=== PATIENT | female | born 1935 | race Caucasian/White ===

== ENCOUNTER 2017-09-26 12:59 | Observation (INO) | payer MEDICARE, OTHER ==
[2017-09-26] MEDS ORDERED: Iopamidol 370 76% 100 ML VIAL ONE (13:40)
[2017-09-26 13:43] LABS: #Lymphocytes 0.5 thou/uL (1.20-3.40); #Monocytes 0.5 thou/uL (0.11-0.59); %Basophils 0.4 % (0.0-1.0); %Eosinophils 0.2 % (0.0-10.0); %Lymphocytes 5.1 % (21.0-51.0); %Monocytes 4.9 % (0.0-10.0); %Neutrophils 89.4 % (42.0-75.0); Hemoglobin 11.4 g/dL (12.0-16.0); Mean Corpuscular HGB CONC 33.8 g/dL (32.0-36.0); Mean Corpuscular Volume 82.9 fl (81.0-99.0); Mean Platelet Volume 7.1 fL (7.4-10.4); Platelet Count 240 thou/uL (130-400); RBC Distribution Width 11.6 % (11.5-14.5); Red Blood Cell (RBC) Count 4.06 mill/uL (4.20-5.40)
[2017-09-26] MEDS ORDERED: Morphine 5 MG/ML SYRINGE ONE (13:52)
[2017-09-26] MEDS ORDERED: Ondansetron HCl/PF 4 MG/2 ML Vial ONE (13:52)
[2017-09-26 14:01] LABS: ALT (SGPT) 13 U/L (8-55); AST (SGOT) 15 U/L (5-34); Albumin 3.6 g/dL (3.4-4.8); Alkaline Phosphatase 99 U/L (40-150); Anion Gap 14 mmol/L (10-20); BUN (Urea Nitrogen) 16 mg/dL (9.8-20.1); Bilirubin, Total 0.5 mg/dL (0.2-1.2); CK (CPK) 75 U/L (29-168); Calc. Creatinine Clearance 0 mL/min (70-130); Calcium 8.9 mg/dL (7.8-10.44); Carbon Dioxide 23 mmol/L (23-31); Chloride 106 mmol/L (98-107); Estimated GFR-MDRD 69; Globulin 3.3 g/dL (2.4-3.5); Glucose 106 mg/dL (83-110); Lipase 40 U/L (8-78); Potassium 3.7 mmol/L (3.5-5.1); Protein, Total 6.9 g/dL (6.0-8.3); Sodium 139 mmol/L (136-145)
[2017-09-26 14:02] LABS: CKMB 1.8 ng/mL (0-6.6); Troponin I Less than 0.010 ng/mL (< 0.028)
--- NOTE | 2017-09-26 14:26 | CT ---
BRAIN CT WITHOUT IV CONTRAST: HISTORY: An 82-year-old female with altered mental status following chest pain this morning. FINDINGS: Bilateral atrophy and chronic white matter ischemic changes. Subcutaneous partially calcified scalp mass noted overlying the right occipital parietal region. No focal mass or midline shift. No intra- or extraaxial hemorrhage. IMPRESSION: No mass or bleed. Atrophy and chronic white matter ischemic change. POS: OFF
--- NOTE | 2017-09-26 14:28 | RAD ---
CHEST 1 VIEW PORTABLE: HISTORY: An 82-year-old female with a history of chest pain this morning. FINDINGS: Scattered linear and interstitial increased markings, evidence for chronic change. Biapical pleural thickening. Heart size is normal. Atherosclerosis of the aorta. IMPRESSION: Minimal increased linear and interstitial markings most consistent with some chronic change. Biapica l pleural thickening. Atherosclerosis of the aorta. No evidence of pneumonia, edema, or other acute process. POS: OFF
--- NOTE | 2017-09-26 14:41 | CT ---
CT ABDOMEN AND PELVIS WITH CONTRAST: HISTORY: Abdominal pain. Vomiting. COMPARISON: None. FINDINGS: Mild atelectatic changes in the lung bases. No pericardial effusion. Hepatic cyst is present in segment 4A. Prior cholecystectomy. No dilated air fluid loops of large o r small bowel. There is poor renal cortical enhancement of the left kidney relative to the right. The left renal co rtex is thin relative to the right. Aortoiliac contour is nonaneurysmal. No free intraperitoneal gas or fluid. There is mild dilatation of the pancreatic duct. The skeleton is unremarkable. IMPRESSION: 1. No acute informatory process of the abdomen or pelvis. 2. Mild diverticular disease of the sigmoid colon without active inflammation. 3. Asymmetric decreased enhancement of the left kidney relative to the right with some cortical thin lou may be chronic in nature, likely chronic vasculature. Recommend correlation with urinalysis to evaluate for urinary tract infection/pyelonephritis. POS: JEAN
[2017-09-26 14:45] LABS: Bilirubin Negative (Negative); Blood, Urine Negative (Negative); Clarity Clear (Clear); Glucose, Urine (Dipstick) Negative (Negative); Leukocyte Negative (Negative); Nitrite Negative (Negative); Protein, Urine (Dipstick) Negative (Neg-Trace); Urobilinogen 0.2 mg/dL (0.2-1.0)
[2017-09-26 16:53] LABS: Troponin I Less than 0.010 ng/mL (< 0.028)
[2017-09-26] MEDS ORDERED: Acetaminophen 325 MG TAB PO PRN (17:55)
[2017-09-26] MEDS ORDERED: Ondansetron HCl/PF 4 MG/2 ML Vial IVP PRN (17:55)
[2017-09-26] MEDS ORDERED: Sodium Chloride 0.9% 1,000 ML IV SCH (17:55)
[2017-09-26] MEDS ORDERED: Ondansetron ODT 4 MG TAB SL PRN (17:55)
[2017-09-26] MEDS ORDERED: Nitroglycerin 2% Ointment 1 INCH/1 GM Packet TOP SCH (18:00)
[2017-09-26 18:16] VITALS: BMI 21.9
[2017-09-26] MEDS ORDERED: traMADol HCl 50 MG TAB PO PRN (19:44)
[2017-09-26 19:55] LABS: Troponin I 0.012 ng/mL (< 0.028)
[2017-09-26] MEDS: Carvedilol 3.125 MG TAB PO SCH (21:19)
[2017-09-26] MEDS: Famotidine 20 MG TAB PO SCH (21:19)
--- NOTE | 2017-09-26 21:29 | HP ---
PRIMARY CARE PHYSICIAN: Savannah Do M.D. CHIEF COMPLAINT: Chest pain. HISTORY OF PRESENT ILLNESS: This is an 82-year-old female with minimal past medical history, who initially fell approximately 2 weeks ago in her bathtub; she describes the event as an inability to get out of the bathtub, so she leaned heavily on her anterior chest wall. Since then, the patient has been demonstrating significant bruising, complaints of intermittent discomfort in the area across her front chest. The patient went to go see her PCP yesterday; however, and denied any significant chest pain rating her pain in that area at a 2/10. Earlier today, the patient had acute diarrhea x1 and complained of feeling nauseated and self-induced emesis x1 by sticking her finger down her throat. After that episode, the patient complained of chest discomfort. The patient was therefore taken to the Emergency Department [facility] because of the complaint of chest pain and concern for coronary artery disease. At the time of my evaluation, the patient is accompanied by her niece, who is her closest living relative and the niece helps provide part of the history as above. REVIEW OF SYSTEMS: As per HPI. CONSTITUTIONAL: No significant weight loss. The patient has gained approximately 4 pounds in the last 2 weeks since moving to a home close to her niece. Patient's niece states that she has been "fixing plates" for the patient and the patient tends to eat everything that is placed in front of her. Patient was previously living by herself in her own home far away from any family and the niece is not sure how well the patient was eating beforehand. No recent fevers or chills. HEENT: No recent complaints of dizziness or lightheadedness. There is a question of whether or not the patient has had some vision loss and it is unclear, but the duration of vision loss as the patient has been "running into objects" but this has been noticed for at least for the last 2 weeks if not longer is unknown duration. CARDIOVASCULAR: Chest pain as described above other than the episode above. No recent issues with dyspnea with exertion or chest pressure or shortness of breath. RESPIRATORY: As described above as well. No recent cough, no recent congestion or complaints of sinus pain or ear pain. GASTROINTESTINAL: As described above. GENITOURINARY: No recent complaints of dysuria, changes in urinary frequency, quantity, or quality. MUSCULOSKELETAL: No new myalgias or arthralgias, other than the pain from leaning across the tub and the anterior chest wall. The remainder review of systems otherwise negative. PAST MEDICAL HISTORY: As per above includes, 1. Overactive bladder. 2. The patient's niece wonders if the patient may have some early cognitive deficit, but the patient has never been diagnosed with this. ALLERGIES: No known prior surgeries that the patient recalls that her niece is aware of. HOME MEDICATIONS: Please see the EMR, it appears that the patient takes minimal home medications including over the counter selenium supplements. No recent new supplements, herbals, vitamins or medication changes at the patient' s niece or the patient is aware of. FAMILY HISTORY: No known family history of cardiovascular disease; however, the patient does have a family member she has issues with glaucoma, both acute angle included. SOCIAL HISTORY: The patient previously was living alone now is still living independently with her pet dog, but in close geographic proximity to her niece, who is with her at bedside. Patient indicates her niece would be her medical decision maker if she is unable to make her own medical decisions and does not have a current DNR in place and has not discuss this before, so she is currently presumed to be a FULL CODE as she does not want to make that decision at this point in time. PHYSICAL EXAMINATION: VITAL SIGNS: Blood pressure 126/81, respirations 18, satting 93% on room air, pulse of 71, and temperature of 99.8. GENERAL: The patient is awake, alert, conversant, oriented to self and to place that this is a hospital. HEENT: Normocephalic, atraumatic. Slightly dry mucous membranes. Equal ocular motions are intact. Marginal dentition. No posterior oropharyngeal erythema or exudate. RESPIRATORY: Reasonable air movement. No conversational dyspnea. No wheezes, rales, or rhonchi. Clear to auscultation bilaterally. CARDIOVASCULAR: S1 and S2. There are no significant murmurs, rubs, or gallops. Soft heart tones. Pulses 2+ bilateral upper extremities, no pitting pedal edema. ABDOMEN: Positive bowel sounds, soft, nontender to palpation. NEUROLOGIC: Moving all 4 extremities independently, able to self-reposition in the bed and feed herself without difficulty or assistance. LABORATORY DATA AND IMAGING: WBC 10.0, hemoglobin 11.4, hematocrit 33.6, platelets 240. Sodium 139, potassium 3.7, chloride 106, bicarbonate 23, BUN 16 , creatinine 0.79, glucose 106. Lactic acid 0.8, calcium 8.9, total bilirubin 0.5, AST 15, ALT 13, alkaline phosphatase 99. Creatinine kinase 75, troponin less than 0.01 x2. Total protein 6.9, albumin 3.6, TSH 1.9, lipase of 40. UA is essentially planned 09/26/2017 chest x-ray result. IMPRESSION: Minimal increased linear and interstitial markings most consistent with some chronic change. Biapical pleural thickening. Atherosclerosis of the aorta. No evidence of pneumonia, edema, or other acute process. On 07/29/2017 , brain CT: Impression" no mass or bleed. Atrophy and chronic white matter ischemic change." On 07/29/2017, abdomen and pelvis CT: Impression, "No acute inflammatory process of the abdomen or pelvis. Mild diverticular disease of the sigmoid colon without active inflammation. Asymmetric decreased enhancement of the left kidney relative to the right with some cortical thinning may be chronic in nature, likely chronic vasculature. Recommend correlation with urinalysis to evaluate for urinary tract infection/ pyelonephritis." ASSESSMENT AND PLAN: An 82-year-old female with a chief complaint of chest pain. 1. Chest pain. Given the patient's history, suspect a component of musculoskeletal origin of chest pain, particularly with bruising noted around her chest wall and breasts. The discomfort could also have a pleuritic component exacerbated by a degree of splinting after her bruising from the tub incident/ fall. We will initiate incentive spirometry, conservative management of pain including Lidoderm patch and tramadol if needed along with non- steroidal anti-inflammatory drugs. Patient will undergo evaluation for a cardiac etiology; however, that appears to be slightly less likely given more apparent cause of musculoskeletal pain. 2. Initially prior to presentation in sign out is given that there is a concern for gastroenteritis causing a component of dehydration. Patient is currently tolerating her dinner including mashed potatoes and a pork chop without any difficulty. I suspect that what has occurred earlier is likely resolved. We will continue to monitor overnight. 3. Question of emphysema. The patient's niece states that the patient used to be a heavy smoker at one point in time was told that she has emphysema. She has never been evaluated for this on an outpatient basis. The patient is currently not hypoxic, appears to be maintaining her O2 saturations. Do not suspect a chronic obstructive pulmonary disease exacerbation at this point in time. Of note, the patient's chest x-ray does appear to have some degree of hyperinflation without flattening of the diaphragms. We would recommend that the patient have an outpatient pulmonary function test. 4. Diet: As tolerated. 5. Activity: As tolerated. Incentive spirometry as above and we will consult physical therapy. 6. Deep vein thrombosis prophylaxis, enoxaparin. Thank you for asking me to care for patient, admit the patient to observation status. LATIAD
[2017-09-27] MEDS: Prevnar 13-Val Conj/PF 0.5 ML SYRINGE IM ONE ×2 (02:08→13:49)
[2017-09-27 05:52] LABS: Cardiac Risk 2.6 (Less than 4.5)
[2017-09-27] MEDS ORDERED: Aspirin 325 MG TAB PO SCH (09:00)
[2017-09-27] MEDS ORDERED: Enoxaparin Sodium 30 MG/0.3 ML SYRINGE SC SCH (09:00)
[2017-09-27] MEDS ORDERED: Lidocaine 5% Patch TD SCH (09:00)
[2017-09-27] MEDS: Famotidine 20 MG TAB PO SCH (09:35)
[2017-09-27] MEDS: Carvedilol 3.125 MG TAB PO SCH (09:35)
[2017-09-27 12:16] VITALS: TEMP 98.4
[2017-09-27 12:29] VITALS: BP 110/54
[2017-09-27] MEDS ORDERED: Lidocaine Patch Removal 1 EACH TOP SCH (21:00)
== END 2017-09-27 14:22 | disposition home or self-care (01) ==
LOC: SCSER 12:59 → 2SW 15:57
PROVIDERS: ADMIT Internal Medicine; ATTEND Internal Medicine
DX: R07.89 Other chest pain (principal); K52.9 Noninfective gastroenteritis and colitis, unspecified; E86.0 Dehydration
CPT/HCPCS: 70450; 71045; 74177; 80061; 81003; 82550; 82553; 83605; 83690; 84484 ×2; 87040; 87086; 90670; 93005; 93306; 94760; 96361 ×2; 96372; 96374; 96375; 97116; 97139; 99285; G0009; G0378; G8978; G8979; 36415; 80053; 84443; 85025; 90471; J2270; A4353; J1650; J2405

== ENCOUNTER 2018-11-05 10:36 | Inpatient (IN) | payer MEDICARE ==
[2018-11-05] MEDS ORDERED: Ondansetron ODT 8 MG TAB ONE (11:13)
[2018-11-05] MEDS ORDERED: Morphine 10 MG/ML VIAL ONE (11:13)
--- NOTE | 2018-11-05 11:43 | RAD ---
XR Elbow Rt 4 View STANDARD HISTORY: Fall with elbow pain. COMPARISON: None. FINDINGS: The bones are demineralized. There is no evidence of fracture, dislocation or joint effusio n. Mild arthritic changes are present. IMPRESSION: No acute injury.
--- NOTE | 2018-11-05 11:44 | RAD ---
XR Shoulder Rt 3 View STANDARD HISTORY: Fall with shoulder pain. COMPARISON: None. FINDINGS: Bones are demineralized. There are no signs of fracture or dislocation. IMPRESSION: No evidence of fracture.
--- NOTE | 2018-11-05 11:45 | RAD ---
Exam: AP pelvis one view: HISTORY: Unwitnessed fall this morning, right hip pain FINDINGS: Left hip nail in place. Subcapital right femoral neck fracture with some foreshortening. Bony demineralization. No evidence for acute pelvis fracture. IMPRESSION: Displaced somewhat foreshortened right subcapital femoral neck fracture. Left hip nail stabilizes the left hip. Bony demineralization without acute pelvic fracture.
--- NOTE | 2018-11-05 11:48 | RAD ---
RIGHT HIP 2 VIEWS: Date: 11/05/18 HISTORY: Fall. Right hip injury. FINDINGS: There is valgus angulation at a subcapital fracture. Femoral head contour is maintained. Mild osteoph ytosis. Osseous structures are demineralized. IMPRESSION: Subcapital right hip fracture. POS: CET
[2018-11-05 12:03] LABS: #Eosinphils 0.1 thou/uL (0.0-0.7); #Lymphocytes 1.3 thou/uL (1.20-3.40); %Basophils 0.2 % (0.0-1.0); %Eosinophils 1.1 % (0.0-10.0); %Lymphocytes 11.2 % (21.0-51.0); %Monocytes 8.7 % (0.0-10.0); %Neutrophils 78.8 % (42.0-75.0); Hemoglobin 10.7 g/dL (12.0-16.0); Mean Corpuscular Hemoglobin 30.4 pg (27.0-31.0); Mean Corpuscular Volume 89.4 fL (78.0-98.0); Mean Platelet Volume 6.6 fL (7.4-10.4); Platelet Count 253 thou/uL (130-400); RBC Distribution Width 11.5 % (11.5-14.5); Red Blood Cell (RBC) Count 3.52 mill/uL (4.20-5.40); White Blood Cell (WBC) Count 11.4 thou/uL (4.8-10.8)
--- NOTE | 2018-11-05 12:13 | CT ---
CT HEAD NONCONTRAST DATE: 11/05/18 HISTORY: Fall. Head injury. COMPARISON: 09/26/17. FINDINGS: There is no evidence of acute intracranial hemorrhage or infarct. The ventricles appear normal in siz e, shape, and position. There is no mass effect or shift of midline structures. Diffuse cortical atro phy and chronic ischemic small vessel disease. Visualized paranasal sinuses remain well aerated. Part ially calcified right parietal scalp lesions appear stable. IMPRESSION: No acute intracranial abnormalities are demonstrated. POS: CET
[2018-11-05 12:31] LABS: ALT (SGPT) 17 U/L (8-55); AST (SGOT) 28 U/L (5-34); Alkaline Phosphatase 92 U/L (40-150); Anion Gap 14 mmol/L (10-20); BUN (Urea Nitrogen) 19 mg/dL (9.8-20.1); Bilirubin, Total 0.5 mg/dL (0.2-1.2); Calc. Creatinine Clearance 0 mL/min (70-130); Calcium 9.6 mg/dL (7.8-10.44); Carbon Dioxide 22 mmol/L (23-31); Chloride 102 mmol/L (98-107); Estimated GFR-MDRD 61; Globulin 2.9 g/dL (2.4-3.5); Glucose 111 mg/dL (83-110); Magnesium 1.7 mg/dL (1.6-2.6); Protein, Total 6.9 g/dL (6.0-8.3); Sodium 134 mmol/L (136-145)
--- NOTE | 2018-11-05 12:32 | RAD ---
CHEST 1 VIEW: Date: 11/05/18 HISTORY: Preop. COMPARISON: 09/26/17. FINDINGS: Cardiac silhouette is magnified by projection. Pulmonary vasculature unremarkable. Lungs remain hyper inflated. Mediastinum midline. No confluent air space consolidation or evidence of pneumothorax. IMPRESSION: No active cardiopulmonary abnormalities are demonstrated. POS: CET
[2018-11-05 12:43] LABS: Phosphorus 3.1 mg/dL (2.3-4.7)
[2018-11-05 12:49] LABS: Troponin I Less than 0.010 ng/mL (< 0.028)
[2018-11-05 13:16] LABS: Bilirubin Negative (Negative); Blood, Urine Negative (Negative); Clarity CLOUDY (Clear); Glucose, Urine (Dipstick) Negative (Negative); Leukocyte Negative (Negative); Nitrite Negative (Negative); Protein, Urine (Dipstick) Negative (Neg-Trace); Specific Gravity, Urine 1.015 (1.002-1.036); Urobilinogen 0.2 mg/dL (0.2-1.0); pH, Urine 7.5 (5.0-9.0)
[2018-11-05] MEDS ORDERED: Promethazine HCl 25 MG/ML VIAL IM PRN (13:30)
[2018-11-05] MEDS ORDERED: hydrALAZINE 20 MG/ML VIAL SLOW IVP PRN (13:30)
[2018-11-05] MEDS ORDERED: Dextrose 50% Abboject 50 ML SYRINGE SLOW IVP PRN (13:30)
[2018-11-05] MEDS ORDERED: Dextrose 5% in Water 1,000 ML IV PRN (13:30)
[2018-11-05] MEDS ORDERED: Ondansetron PF 4 MG/2 ML Vial IVP PRN (13:30)
[2018-11-05] MEDS ORDERED: traMADol HCl 50 MG TAB PO PRN (13:33)
[2018-11-05] MEDS ORDERED: Magnesium 2 GM/50 ML 2 GM in Premix Bag 1 BAG IVPB SCH (13:45)
[2018-11-05] MEDS: Ibuprofen 600 MG TAB PO SCH ×2 (15:14→21:36)
[2018-11-05] MEDS: Acetaminophen 1,000 MG in Premix Bag 1 BAG IVPB SCH ×2 (15:14→21:35)
[2018-11-05] MEDS: Sodium Chloride 0.9% 1,000 ML IV SCH (15:14)
--- NOTE | 2018-11-05 15:35 | HP ---
TRAUMA SURGEON: Bakari Parsons MD CONSULTING PHYSICIAN: Dr. Hollins. HISTORY OF PRESENT ILLNESS: The patient is an 83-year-old female presented to the emergency department after unwitnessed fall at a [facility], where she [facility]. The patient arrived complaining of right-sided hip pain. The fall happened around 3 a.m. The patient was able to crawl out through the door and called for help. She did not ambulate after that time. Evaluation by the Emergency Department discovered a right-sided hip fracture. Orthopedic Surgery was consulted, who recommended surgical fixation tomorrow. At the time of my evaluation, the patient reported she had pain in her right hip. She has a history of Alzheimer's dementia and has waxing and waning mentation. The patient's nephew and his at bedside, who are her POA and closest relative reports that this is her baseline. She did recognize them. Family also reports she is intermittently agitated and she will regularly try to get up out of bed without assistance while in the hospital. She usually ambulates without difficulty in her prison and is able to get up and go to the bathroom at night. The patient's mechanical design technician who stays with her at the prison report the patient did not have a loss of consciousness. She is not on any anticoagulation. REVIEW OF SYSTEMS: All additional 10-point review of systems is negative except as indicated above. PAST MEDICAL HISTORY: Alzheimer's dementia, chronic anemia, depression, anxiety , bipolar disorder, GERD, and schizoaffective disorder. PAST SURGICAL HISTORY: Left hip repair and hysterectomy. SOCIAL HISTORY: Family reports a previous history of tobacco use, none recently. Denies alcohol and drug abuse as well. MEDICATIONS: 1. Alprazolam. 2. Aricept. 3. Aspirin. 4. Bisacodyl. 5. Celexa. 6. D3. 7. Depakote. 8. Docusate sodium. 9. Imodium ED. 10. Magnesium oxide. 11. Meclizine. 12. Melatonin. 13. Omeprazole. 14. Quetiapine. 15. Remeron. 16. Ventolin HFA. 17. Vitamin C. ALLERGIES: NO KNOWN DRUG ALLERGIES. PHYSICAL EXAMINATION: Primary survey airway intact. Adequate breath sounds bilaterally. 2+ pulses in the bilateral radials, femorals, and DPs. GCS is 14-1 for confusion. This is her baseline. Gross motor and sensation is intact. No lacerations, bruising, or external bleeding. SECONDARY SURVEY: HEAD: Normocephalic and atraumatic. No gross palpable skull deformities. EYES: Pupils 3 to 2, equal, round, reactive bilaterally. ENT: No hemotympanum. No epistaxis. No septal hematoma. Midface stable to manipulation. No blood in the oropharynx. Dentition is intact. No anterior neck injury, crepitus or tenderness. C-SPINE: No tenderness or deformities. No step-offs. C-collar not in place. CHEST: Nontender. No crepitus. No abrasions or ecchymosis noted. Equal chest movement. ABDOMEN: Soft, nontender, nondistended. PELVIS: Stable to palpation. Right-sided hip and thigh tenderness. No abrasions or ecchymosis. RECTAL: Deferred. GENITOURINARY: Deferred. EXTREMITIES: 2+ pulses in all extremities. No gross deformity noted. Gross motor and sensation is intact. BACK/SPINE: No step-offs or deformities or tenderness to palpation of the thoracic or lumbar spine. No abrasions or ecchymosis noted. NEUROLOGIC: 5/5 strength in the bilateral rubber block layer, plantar flexion, and dorsiflexion. Gross normal sensation x4 extremities. GCS is 14-1 for verbal, which is her baseline. LABORATORY FINDINGS: White count 11.4, hemoglobin 10.7, hematocrit 31.4, platelets 253. Sodium 134, potassium 4.0, chloride 102, carbon dioxide 22, BUN 19, creatinine 0.88, glucose 111, phos 3.1, magnesium 1.7, total bilirubin 0.5, AST 28, ALT 17. Troponin less than 0.010. UA is negative. DIAGNOSTIC FINDINGS: EKG demonstrated normal sinus rhythm with no ST changes or ectopy. CT of the brain demonstrated no acute intracranial abnormalities are demonstrated. X-ray of the right elbow demonstrated no acute injury. X-ray of the right hip demonstrated a subcapital right hip fracture. X-ray of the pelvis demonstrates displaced, somewhat foreshortened right subcapital femoral neck fracture. Left hip nail visualized in the left hip. Bony demineralization without acute pelvic fracture. X-ray of the right shoulder demonstrates no evidence of fracture. Chest x-ray demonstrates no active cardiopulmonary abnormalities are demonstrated. ASSESSMENT: 1. Status post unwitnessed fall at prison. 2. Right hip fracture. 3. Hypomagnesemia and hyponatremia. PLAN: The patient will be admitted to the Trauma Floor Service. She will receive a regular diet and be n.p.o. after midnight for OR with the Orthopedic Surgery team. Dr. Hollins to take the patient to the OR tomorrow. We will restart all home medications as clinically indicated. The patient is to be seen by Physical and Occupational Therapy tomorrow. The patient's family reported that the prison, in which she resides, has rehab and penitentiary capabilities and they would prefer that she go back to that facility as she is familiar with the staff and therapist. They said that these familiar people can greatly decrease the amount of agitation and combativeness that the patient has, as she feels more safe with them. The patient was discussed with Dr. Parsons before this dictation. Job ID: [id number] MTDD
[2018-11-05 15:41] VITALS: BMI 18.3
[2018-11-05] MEDS: traMADol HCl 50 MG TAB PO SCH (17:14)
[2018-11-05] MEDS ORDERED: Famotidine 20 MG TAB PO SCH (21:00)
[2018-11-05] MEDS: Divalproex Sodium 125 mg Sprinkle Capsule PO SCH (21:35)
[2018-11-05] MEDS: Senokot S 8.6-50 MG TAB PO SCH (21:36)
[2018-11-05] MEDS: Meclizine HCl 25 MG TAB PO SCH (21:36)
[2018-11-05] MEDS: Donepezil HCl 5 MG TAB PO SCH (21:36)
[2018-11-06] MEDS: traMADol HCl 50 MG TAB PO SCH ×4 (01:07→20:01)
[2018-11-06] MEDS: Acetaminophen 1,000 MG in Premix Bag 1 BAG IVPB SCH ×2 (03:45→09:02)
[2018-11-06 05:27] LABS: #Eosinphils 0.3 thou/uL (0.0-0.7); #Lymphocytes 0.6 thou/uL (1.20-3.40); #Monocytes 0.6 thou/uL (0.11-0.59); #Neutrophils 5.7 thou/uL (1.40-6.50); %Basophils 0.4 % (0.0-1.0); %Eosinophils 4.4 % (0.0-10.0); %Lymphocytes 7.9 % (21.0-51.0); %Monocytes 8.5 % (0.0-10.0); %Neutrophils 78.9 % (42.0-75.0); Hemoglobin 9.4 g/dL (12.0-16.0); Mean Corpuscular HGB CONC 33.4 g/dL (32.0-36.0); Mean Corpuscular Hemoglobin 30.2 pg (27.0-31.0); Mean Corpuscular Volume 90.5 fL (78.0-98.0); Mean Platelet Volume 6.7 fL (7.4-10.4); Platelet Count 182 thou/uL (130-400); RBC Distribution Width 11.6 % (11.5-14.5); Red Blood Cell (RBC) Count 3.12 mill/uL (4.20-5.40); White Blood Cell (WBC) Count 7.2 thou/uL (4.8-10.8)
[2018-11-06] MEDS: Sodium Chloride 0.9% 1,000 ML IV SCH ×2 (05:42→21:02)
[2018-11-06] MEDS: Ibuprofen 600 MG TAB PO SCH ×4 (05:43→23:27)
[2018-11-06 08:16] LABS: Chloride 102 mmol/L (98-107); Magnesium 2.3 mg/dL (1.6-2.6); Sodium 132 mmol/L (136-145)
[2018-11-06 08:17] LABS: Calcium 8.5 mg/dL (7.8-10.44); Glucose 94 mg/dL (83-110)
[2018-11-06 08:19] LABS: Anion Gap 12 mmol/L (10-20); Carbon Dioxide 22 mmol/L (23-31)
[2018-11-06 08:21] LABS: Calc. Creatinine Clearance 41 mL/min (70-130); Estimated GFR-MDRD 59
[2018-11-06 08:22] LABS: BUN (Urea Nitrogen) 19 mg/dL (9.8-20.1)
[2018-11-06 08:27] LABS: Phosphorus 4.2 mg/dL (2.3-4.7)
[2018-11-06] MEDS: Citalopram 20 MG TAB PO SCH (09:07)
[2018-11-06] MEDS: ALPRAZolam 0.25 MG TAB PO SCH (09:08)
[2018-11-06] MEDS: Mirtazapine 15 MG TAB PO SCH (10:38)
[2018-11-06] MEDS: Divalproex Sodium 125 mg Sprinkle Capsule PO SCH ×3 (10:38→23:27)
[2018-11-06] MEDS: Meclizine HCl 25 MG TAB PO SCH ×3 (10:38→23:27)
[2018-11-06] MEDS: Magnesium Oxide 400 MG TAB PO SCH (10:38)
[2018-11-06] MEDS: Polyethylene Glycol 3350 17 GM Packet PO SCH (10:39)
[2018-11-06] MEDS: Senokot S 8.6-50 MG TAB PO SCH ×3 (10:39→23:27)
--- NOTE | 2018-11-06 11:33 | CON ---
DATE OF CONSULTATION: 11/05/2018 This is Marcel Alatorre PA-C dictating a report for Tomasz Hollins MD. REASON FOR CONSULTATION: Right femoral neck fracture. BRIEF CLINICAL HISTORY: Haritha is an 83-year-old white female, who is a resident at a nursing facility in [place]. Apparently, the patient had an unwitnessed fall yesterday evening and she was brought to [facility] with plain radiographs, which demonstrated a valgus impacted right subcapital femoral neck fracture. She has been admitted by the Trauma service and we were consulted for definitive orthopedic management of this problem. The patient ambulates on her own. She has a sitter and is taken care of by her family in addition to the nursing facility. Her oldest nephew has been taking care of her and looking after her. PHYSICAL EXAMINATION: GENERAL: An elderly, frail-appearing woman, but well-nourished. She is lying supine in the hospital bed. EXTREMITIES: The right lower extremity appears normal. There is no shortening or external rotation. She is neurovascularly intact in the extremity, but palpation demonstrates discomfort. The hips are not examined due to known underlying fracture. IMAGING STUDIES: AP pelvis demonstrates a valgus impacted right subcapital femoral neck fracture. IMPRESSION: Right hip subcapital valgus impacted right femoral neck fracture. PLAN: 1. The risks, benefits, options, alternatives, and rationale for proceeding with a right hip hemiarthroplasty has been explained in great detail to the patient's family and they are ready to proceed. All questions were answered. No guarantee of outcome stated or implied. 2. Please see orders. Job ID: [id number]
[2018-11-06] MEDS ORDERED: Fentanyl 100 MCG/2 ML VIAL ONE ×2 (14:40→18:11)
--- NOTE | 2018-11-06 15:37 | PRG ---
DATE OF SERVICE: 11/06/2018 SUBJECTIVE: The patient is an 83-year-old female, who presented after a fall resulting in a right-sided hip fracture. She is planned to go to surgery today. Currently, pain is controlled with medication. She is n.p.o. OBJECTIVE: VITAL SIGNS: Blood pressure 126/67, temperature 98.2, pulse 86, respiratory rate 14, SpO2 of 92% on room air. GENERAL: Alert, in no acute distress. NECK: Trachea midline. Supple. RESPIRATORY: Normal respiratory effort. No distress. ABDOMEN: Nondistended. EXTREMITIES: No obvious deformities. Moves all 4 limbs. SKIN: Normal turgor. No pallor. LABORATORY DATA: White blood cell count 7.2 from 11.4, hemoglobin 9.4. Sodium 132. UA, negative. ASSESSMENT: 1. Right hip fracture. 2. Unwitnessed fall. 3. Hypomagnesemia, resolved. 4. Hyponatremia. PLAN: The patient is currently n.p.o. for orthopedic surgery by Dr. Hollins today. We will restart medications afterwards surgery. Physical Therapy and Occupational Therapy have been consulted. Case Management has been consulted for placement as the patient and the patient's family would prefer that she return to the [facility]way, where she resides for either rehab or fpc services. This patient was seen and discussed with Dr. Parsons during morning rounds. Plan was discussed with the patient. Job ID: [id number]
[2018-11-06] MEDS ORDERED: Ondansetron HCl/PF 4 MG/2 ML Vial IVP PRN (16:43)
[2018-11-06] MEDS ORDERED: Promethazine HCl 25 MG/ML VIAL SLOW IVP PRN (16:43)
[2018-11-06] MEDS ORDERED: Promethazine HCl 25 MG/ML VIAL IM PRN (16:43)
--- NOTE | 2018-11-06 17:11 | RAD ---
AP view pelvis. HISTORY: Right hemiarthroplasty. AP view pelvis demonstrates a right hip bipolar hemiarthroplasty. No evidence of fractures or looseni ng seen. The pelvis is otherwise unremarkable. Gamma nail seen in the proximal left femur. IMPRESSION: Right hip hemiarthroplasty.
--- NOTE | 2018-11-06 17:22 | RAD ---
Single lateral view intraoperative right hip. HISTORY: Right hip arthroplasty. Intraoperative radiograph A single intraoperative image is obtained and demonstrates motion artifact in the femoral component. A bipolar right hip hemiarthroplasty is in place. IMPRESSION: right hip hemiarthroplasty.
--- NOTE | 2018-11-06 18:57 | RAD ---
EXAM: CHEST ONE VIEW HISTORY: Shortness of breath. COMPARISON: 11/05/2018 FINDINGS: Cardiac silhouette is magnified by projection and patient rotation. Medial aspect of each lung apex i s not well visualized due to patient's overlying mandible and jaw secondary to patient rotation. Again noted is biapical pleural and parenchymal scarring which does appear to be partially calcified on the right. There is limited evaluation of the lateral costophrenic angles due to patient rotation, but no definite consolidation or pleural effusion is appreciated. There is mild hyperinflat ion of the lungs bilaterally similar to prior study. Osteopenia is present. No other interval change. IMPRESSION: Limited exam due to patient rotation, but no definite acute cardiopulmonary process is identified.
[2018-11-06] MEDS ORDERED: Furosemide 40 MG/4 ML VIAL ONE (19:11)
[2018-11-06] MEDS: CEFAZOLIN 2 GM in Premix Bag 1 BAG IVPB SCH (21:03)
[2018-11-06] MEDS: Donepezil HCl 5 MG TAB PO SCH ×2 (21:07→23:27)
[2018-11-06] MEDS: Morphine 2 MG/ML SYRINGE SLOW IVP PRN (23:28)
--- NOTE | 2018-11-06 23:54 | OP ---
DATE OF PROCEDURE: 11/06/2018 PREOPERATIVE DIAGNOSIS: Right femoral neck fracture. POSTOPERATIVE DIAGNOSIS: Right femoral neck fracture. COMPLICATIONS: None. ESTIMATED BLOOD LOSS: Minimal. PROCEDURE PERFORMED: Right hip hemiarthroplasty, bipolar. IMPLANTS: [employer] [place] basic press-fit cemented stem size 5 with a 47-mm bipolar shell and a +5 femoral head. ALFALFA DEHYDRATOR OPERATOR: Keon Farfan PA-C INDICATIONS: Ms. Huitron is an 83-year-old female who has fallen and fractured the right femoral neck. She has been indicated for hemiarthroplasty of the hip to restore function and hopefully prevent complications of prolonged bedrest. Risks have been reviewed in detail. She has elected to proceed with the operation. DESCRIPTION OF PROCEDURE: Ms. Huitron was identified in preoperative holding area. Her correct extremity was marked. She was carried to the operating room. She was positioned supine. General anesthesia was induced. She was converted to the lateral decubitus position. We began the procedure with posterior approach to the hip dissecting down through the subcutaneous tissues to the fascia, which was opened. We exposed the short external rotators of the hip, which were subperiosteally divided from the proximal femur. We then performed a capsulotomy. We dislocated the femoral head and removed the broken fragments. We performed a new osteotomy using an oscillating saw. At this point, we prepared the femoral canal with reaming followed by broaching up to a size 5. This gave a good fit. We then proceeded to mix cement on the back table. We trialed our components. A +5 femoral head was appropriate for our length and range of motion as well as equal leg length. Once our cement was appropriately ready and we had thoroughly irrigated, we placed cement into the canal and cemented in our femoral stem. We then impacted our final bipolar hemiarthroplasty head. We reduced the hip once more. At this point, we again checked stability and leg length and were happy. We then thoroughly irrigated and closed with #5 Ethibond suture in the capsule and piriformis tendon through drill holes. This was followed by #2 Vicryl suture, and 2-0 Vicryl suture, and joe for the skin. A sterile dressing was applied. The patient was taken to the recovery room in good condition at this point. Job ID: [id number]
[2018-11-07] MEDS: traMADol HCl 50 MG TAB PO SCH ×4 (00:25→21:05)
[2018-11-07] MEDS: Morphine 2 MG/ML SYRINGE SLOW IVP PRN (04:25)
[2018-11-07] MEDS: CEFAZOLIN 2 GM in Premix Bag 1 BAG IVPB SCH (05:53)
[2018-11-07 05:59] LABS: #Basophils 0.2 thou/uL (0.0-0.2); #Lymphocytes 0.4 thou/uL (1.20-3.40); #Monocytes 1.1 thou/uL (0.11-0.59); #Neutrophils 10.1 thou/uL (1.40-6.50); %Basophils 1.9 % (0.0-1.0); %Eosinophils 0.2 % (0.0-10.0); %Lymphocytes 3.1 % (21.0-51.0); %Monocytes 9.3 % (0.0-10.0); %Neutrophils 85.5 % (42.0-75.0); Hemoglobin 8.5 g/dL (12.0-16.0); Mean Corpuscular HGB CONC 33.6 g/dL (32.0-36.0); Mean Corpuscular Hemoglobin 30.8 pg (27.0-31.0); Mean Corpuscular Volume 91.6 fL (78.0-98.0); Mean Platelet Volume 6.8 fL (7.4-10.4); Platelet Count 192 thou/uL (130-400); RBC Distribution Width 11.6 % (11.5-14.5); Red Blood Cell (RBC) Count 2.77 mill/uL (4.20-5.40); White Blood Cell (WBC) Count 11.8 thou/uL (4.8-10.8)
[2018-11-07 06:26] LABS: Anion Gap 14 mmol/L (10-20); BUN (Urea Nitrogen) 14 mg/dL (9.8-20.1); Calc. Creatinine Clearance 50 mL/min (70-130); Calcium 8.4 mg/dL (7.8-10.44); Carbon Dioxide 21 mmol/L (23-31); Chloride 103 mmol/L (98-107); Estimated GFR-MDRD 72; Glucose 113 mg/dL (83-110); Magnesium 1.5 mg/dL (1.6-2.6); Phosphorus 3.5 mg/dL (2.3-4.7); Potassium 3.8 mmol/L (3.5-5.1); Sodium 134 mmol/L (136-145)
[2018-11-07] MEDS: Ibuprofen 600 MG TAB PO SCH ×2 (07:17→21:06)
[2018-11-07] MEDS: Mirtazapine 15 MG TAB PO SCH (09:25)
[2018-11-07] MEDS: Citalopram 20 MG TAB PO SCH (09:28)
[2018-11-07] MEDS: Meclizine HCl 25 MG TAB PO SCH ×2 (09:29→22:02)
[2018-11-07] MEDS: Magnesium Oxide 400 MG TAB PO SCH (09:29)
[2018-11-07] MEDS: ALPRAZolam 0.25 MG TAB PO SCH (09:30)
[2018-11-07] MEDS: Divalproex Sodium 125 mg Sprinkle Capsule PO SCH ×2 (09:31→22:02)
[2018-11-07] MEDS: Polyethylene Glycol 3350 17 GM Packet PO SCH (10:07)
[2018-11-07] MEDS: Sodium Chloride 0.9% 1,000 ML IV SCH (14:48)
[2018-11-07] MEDS ORDERED: Magnesium Sulfate 3 GM in Sodium Chloride 0.9% 250 ML 250 ML IVPB SCH (15:00)
--- NOTE | 2018-11-07 15:06 | PRG ---
DATE OF SERVICE: 11/07/2018 SUBJECTIVE: The patient is hospital day 3, postop day 1 from a ground level fall when she sustained a right hip fracture. She has undergone open reduction and internal fixation of same. She tolerated this procedure well. Overnight, had no issues and is currently awaiting placement. OBJECTIVE: VITAL SIGNS: Temperature 98.4, heart rate 88, blood pressure 145/70, respirations 18, oxygen saturation 92% on room air. GENERAL: The patient is resting comfortably. Does not appear in any distress in bed. She is somewhat interactive, which is reportedly her baseline due to her Alzheimer dementia. HEENT: Unremarkable. LUNGS: Clear to auscultation. HEART: Regular rate and rhythm. ABDOMEN: Soft, flat, nontender with active bowel sounds. EXTREMITIES: Neurovascularly intact x4. Right hip postop dressing is clean, dry, and intact. LABORATORY FINDINGS: White blood cell count 11.8, hemoglobin 8.5, hematocrit 25.4, platelets 192. Sodium 134, potassium 3.8, chloride 103, CO2 of 21, BUN 14, creatinine 0.76, glucose 113, magnesium 1.5, phosphorus 3.5. There are no radiographs reviewed this morning. ASSESSMENT: 1. Status post ground level fall. 2. Status post open reduction and internal fixation of right hip fracture. 3. Alzheimer dementia. 4. Hypomagnesemia. PLAN: Plan will be to continue working with physical and occupational therapy and await final placement determination. The patient was evaluated this morning with Dr. Parsons during rounds. Job ID: [id number]
[2018-11-07] MEDS: Aspirin 81 mg Enteric Coated Tablet PO SCH (21:03)
[2018-11-07] MEDS: Senokot S 8.6-50 MG TAB PO SCH (21:04)
[2018-11-07] MEDS: Donepezil HCl 5 MG TAB PO SCH (22:02)
[2018-11-08] MEDS: traMADol HCl 50 MG TAB PO SCH ×2 (04:50→07:53)
[2018-11-08] MEDS: Ibuprofen 600 MG TAB PO SCH ×2 (04:50→07:53)
[2018-11-08] MEDS: Aspirin 81 mg Enteric Coated Tablet PO SCH ×2 (04:50→08:34)
[2018-11-08] MEDS: Sodium Chloride 0.9% 1,000 ML IV SCH (04:50)
[2018-11-08] MEDS: Senokot S 8.6-50 MG TAB PO SCH ×2 (04:50→08:33)
[2018-11-08] MEDS: Meclizine HCl 25 MG TAB PO SCH (08:33)
[2018-11-08] MEDS: Divalproex Sodium 125 mg Sprinkle Capsule PO SCH (08:33)
[2018-11-08] MEDS: ALPRAZolam 0.25 MG TAB PO SCH (08:33)
[2018-11-08] MEDS: Mirtazapine 15 MG TAB PO SCH (08:34)
[2018-11-08] MEDS: Magnesium Oxide 400 MG TAB PO SCH (08:34)
[2018-11-08] MEDS: Citalopram 20 MG TAB PO SCH (08:40)
[2018-11-08] MEDS: Polyethylene Glycol 3350 17 GM Packet PO SCH (08:40)
[2018-11-08 09:00] VITALS: BP 138/63; TEMP 98.1
--- NOTE | 2018-11-08 15:13 | EKG ---
Test Reason : Blood Pressure : / mmHG Vent. Rate : 084 BPM Atrial Rate : 084 BPM P-R Int : 148 ms QRS Dur : 084 ms QT Int : 388 ms P-R-T Axes : 083 039 092 degrees QTc Int : 458 ms Normal sinus rhythm Normal ECG Confirmed by MOE PERRY ([id number]), development editor PARRISH HUERTA ([id number]) on 11/08/2018 3:13:01 PM Referred By: VICKY Confirmed By:MOE PERRY
--- NOTE | 2018-11-08 15:56 | DIS ---
DATE OF ADMISSION: 11/05/2018 DATE OF DISCHARGE: 11/08/2018 ADMISSION DIAGNOSES: 1. Status post ground level fall. 2. Right hip fracture. 3. Alzheimer's dementia. 4. Hypomagnesemia. CONSULTATION: Orthopedics, Dr. Hollins. PROCEDURE: Open reduction and internal fixation of right hip fracture. SUMMARY: The patient is an 83-year-old woman, who reportedly had a fall at the longterm facility, which she resides. She was brought to the emergency department and underwent evaluation and examination and was noted to have the above injury. She was taken to the operating room the following morning to undergo her above procedure, which she tolerated well. She began working with Physical and Occupational Therapy and due to her Alzheimer dementia, we were able to get her back to her facility and back to her normal environment, which she strongly desired quickly. Of note, discussion was had with the medical power of carbon capture power plant manager, her nephew in regard to the benefits of getting her back there sooner than later. After discussion with other family members and speaking with the facility itself, the nephew was comfortable with her being discharged back. The patient will follow up with Dr. Hollins in 14 days and she may follow up with the [facility]uma [facility] as needed. We recommended that she follow up with her primary care provider. The patient's hypomagnesemia had resolved prior to discharge also. Job ID: [id number]
== END 2018-11-08 11:40 | DRG 470 ==
LOC: ERS 10:36 → SURG B 15:08 → SURG A 11-06 18:53
PROVIDERS: ADMIT Specialist; ATTEND Specialist
PROC: 0SRR0J9 Replacement of Right Hip Joint, Femoral Surface with Synthetic Substitute, Cemented, Open Approach (ICD-10-PCS; principal; 2018-11-06)
DX: S72.011A Unspecified intracapsular fracture of right femur, initial encounter for closed fracture (principal); E87.1 Hypo-osmolality and hyponatremia; G30.9 Alzheimer's disease, unspecified; F02.80 Dementia in other diseases classified elsewhere, unspecified severity, without behavioral disturbance, psychotic disturbance, mood disturbance, and anxiety; F32.9 Major depressive disorder, single episode, unspecified; F41.9 Anxiety disorder, unspecified; F31.9 Bipolar disorder, unspecified; K21.9 Gastro-esophageal reflux disease without esophagitis; F25.9 Schizoaffective disorder, unspecified; E83.42 Hypomagnesemia; W18.30XA Fall on same level, unspecified, initial encounter; Y92.129 Unspecified place in nursing home as the place of occurrence of the external cause; Z90.710 Acquired absence of both cervix and uterus; Z79.82 Long term (current) use of aspirin
CPT/HCPCS: 36415; 51701; 70450; 71045; 72170; 80048; 80053; 81003; 83735; 84100; 84484; 85025; 93005; 93010; 96372; C1713; C1781; J0131; J0690; J1940; J2270; J3010; J3475; J7050; J8499

== ENCOUNTER 2018-12-20 11:11 | Emergency (ER) | payer MEDICARE ==
[2018-12-20] MEDS ORDERED: Lorazepam 2 MG/ML VIAL ONE (11:40)
[2018-12-20] MEDS ORDERED: Haloperidol Lactate 5 MG/ML VIAL ONE (11:41)
[2018-12-20 13:15] LABS: #Eosinphils 0.1 thou/uL (0.0-0.7); #Lymphocytes 1.1 thou/uL (1.20-3.40); #Monocytes 0.8 thou/uL (0.11-0.59); #Neutrophils 5.1 thou/uL (1.40-6.50); %Basophils 0.5 % (0.0-1.0); %Lymphocytes 14.9 % (21.0-51.0); %Monocytes 10.6 % (0.0-10.0); Hemoglobin 8.6 g/dL (12.0-16.0); Mean Corpuscular HGB CONC 31.3 g/dL (32.0-36.0); Mean Corpuscular Hemoglobin 27.3 pg (27.0-31.0); Mean Platelet Volume 6.3 fL (7.4-10.4); Platelet Count 335 thou/uL (130-400); RBC Distribution Width 12.6 % (11.5-14.5); Red Blood Cell (RBC) Count 3.16 mill/uL (4.20-5.40)
[2018-12-20 13:15] LABS: Bilirubin Negative (Negative); Blood, Urine 2+ (Negative); Clarity Clear (Clear); Glucose, Urine (Dipstick) Normal (Negative); Leukocyte 250 Leu/uL (Negative); Nitrite Negative (Negative); Protein, Urine (Dipstick) 10 mg/dL (Neg-Trace); Urobilinogen Normal mg/dL (Less than 2)
[2018-12-20 13:16] LABS: Bacteria/HPF 1+ HPF (None Seen)
[2018-12-20 13:24] LABS: Anion Gap 14 mmol/L (10-20); BUN (Urea Nitrogen) 9 mg/dL (9.8-20.1); Calc. Creatinine Clearance 0 mL/min (70-130); Calcium 9.4 mg/dL (7.8-10.44); Carbon Dioxide 23 mmol/L (23-31); Chloride 101 mmol/L (98-107); Estimated GFR-MDRD 71; Glucose 100 mg/dL (83-110); Sodium 134 mmol/L (136-145)
[2018-12-20] MEDS ORDERED: cefTRIAXone\\ROCEPHIN 1 GM VIAL ONE (13:29)
[2018-12-20 14:45] LABS: ALT (SGPT) Less than 7 U/L (8-55); AST (SGOT) 18 U/L (5-34); Albumin 3.8 g/dL (3.4-4.8); Alkaline Phosphatase 85 U/L (40-150); Anion Gap 14 mmol/L (10-20); BUN (Urea Nitrogen) 8 mg/dL (9.8-20.1); Bilirubin, Total 0.3 mg/dL (0.2-1.2); CK (CPK) 295 U/L (29-168); Calc. Creatinine Clearance 0 mL/min (70-130); Calcium 9.5 mg/dL (7.8-10.44); Carbon Dioxide 22 mmol/L (23-31); Chloride 102 mmol/L (98-107); Estimated GFR-MDRD 73; Globulin 2.8 g/dL (2.4-3.5); Glucose 104 mg/dL (83-110); Lipase 61 U/L (8-78); Potassium 4.3 mmol/L (3.5-5.1); Protein, Total 6.6 g/dL (6.0-8.3); Sodium 134 mmol/L (136-145)
== END 2018-12-20 16:24 | disposition home or self-care (01) ==
LOC: ERS 11:11
DX: F03.90 Unspecified dementia, unspecified severity, without behavioral disturbance, psychotic disturbance, mood disturbance, and anxiety (principal); N30.00 Acute cystitis without hematuria; K21.9 Gastro-esophageal reflux disease without esophagitis; D64.9 Anemia, unspecified; J44.9 Chronic obstructive pulmonary disease, unspecified; F41.9 Anxiety disorder, unspecified; F31.9 Bipolar disorder, unspecified; F25.9 Schizoaffective disorder, unspecified; Z79.899 Other long term (current) drug therapy; Z79.82 Long term (current) use of aspirin
CPT/HCPCS: 36415; 51701; 80048; 81003; 81015; 82550; 83605; 83690; 83880; 84484; 85025; 87040; 87077; 87086; 87186; 93005; 96372; A4353; J0696; J1630; J2060

== ENCOUNTER 2019-04-12 13:44 | Emergency (ER) | payer MEDICARE, MEDICAID ==
[2019-04-12] MEDS ORDERED: Haloperidol Lactate 5 MG/ML VIAL ONE (14:09)
--- NOTE | 2019-04-12 14:27 | RAD ---
RADIOGRAPH RIGHT HAND 4VIEWS: DATE: 04/12/2019 HISTORY: 83-year-old female with acute traumatic hand pain due to fall. FINDINGS: There is no dislocation. No fracture is identified. There is diffuse osteopenia. IMPRESSION: 1. No fracture identified. 2. Osteoporosis.
--- NOTE | 2019-04-12 14:28 | RAD ---
RADIOGRAPH LUMBAR SPINE 3 VIEWS: DATE: 04/12/2019 HISTORY: Lumbar spine trauma. 83-year-old female with acute low back pain due to fall. FINDINGS: Vertebral body heights are maintained. There is no evidence of fracture. IMPRESSION: No evidence of compression fracture.
--- NOTE | 2019-04-12 14:30 | RAD ---
Radiograph pelvis one view: DATE: 04/12/2019 HISTORY: 83-year-old female with traumatic pelvic pain due to fall. FINDINGS: Right hip replacement arthroplasty hardware. Gamma nail fixating old left intertrochanteric or basice rvical fracture. Diffuse osteopenia. No grossly displaced fracture of pelvic ring identified (however, the osteopenia and overlying bowel gas could obscure a mildly displaced or nondisplaced acu te fracture). IMPRESSION: 1. No acute fracture identified. 2. Osteoporosis. 3. Status post right hip replacement arthroplasty. 4. Old a gamma nail fixation of left old intertrochanteric fracture.
[2019-04-12 15:22] LABS: Bilirubin Negative (Negative); Blood, Urine Negative (Negative); Clarity Clear (Clear); Glucose, Urine (Dipstick) Normal (Negative); Leukocyte Negative Leu/uL (Negative); Nitrite Negative (Negative); Protein, Urine (Dipstick) 20 mg/dL (Neg-Trace); Urobilinogen Normal mg/dL (Less than 2)
[2019-04-12] MEDS ORDERED: Lorazepam 2 MG/ML VIAL ONE (16:47)
== END 2019-04-12 17:39 ==
LOC: ERS 13:44
DX: S60.221A Contusion of right hand, initial encounter (principal); K21.9 Gastro-esophageal reflux disease without esophagitis; F03.90 Unspecified dementia, unspecified severity, without behavioral disturbance, psychotic disturbance, mood disturbance, and anxiety; J44.9 Chronic obstructive pulmonary disease, unspecified; D64.9 Anemia, unspecified; F41.9 Anxiety disorder, unspecified; F31.9 Bipolar disorder, unspecified; Z79.899 Other long term (current) drug therapy; Z79.82 Long term (current) use of aspirin; W19.XXXA Unspecified fall, initial encounter
CPT/HCPCS: 51701; 72100; 72170; 81003; 87086; 96372; A4353; J1630; J2060

== ENCOUNTER 2019-06-02 16:42 | Emergency (ER) | payer MEDICARE, MEDICAID ==
--- NOTE | 2019-06-02 17:33 | CT ---
Exam: CT brain PROVIDED CLINICAL HISTORY: Unwitnessed fall, altered mental status COMPARISON: 11/05/2018 FINDINGS: The ventricular system is normal in size and morphology. No evidence for intracranial hemorrhage or mass effect. Frontal scalp swelling without evidence for fracture. Extensive chronic microvascular ischemic changes are again seen involving the cerebral white matter. IMPRESSION: No evidence for intracranial hemorrhage or mass effect.
== END 2019-06-02 19:44 | disposition home or self-care (01) ==
LOC: ERS 16:42
DX: S00.83XA Contusion of other part of head, initial encounter (principal); F03.90 Unspecified dementia, unspecified severity, without behavioral disturbance, psychotic disturbance, mood disturbance, and anxiety; K21.9 Gastro-esophageal reflux disease without esophagitis; J44.9 Chronic obstructive pulmonary disease, unspecified; F41.9 Anxiety disorder, unspecified; F25.0 Schizoaffective disorder, bipolar type; D64.9 Anemia, unspecified; Z79.899 Other long term (current) drug therapy; Z79.82 Long term (current) use of aspirin; W19.XXXA Unspecified fall, initial encounter
CPT/HCPCS: 70450

== ENCOUNTER 2019-11-23 01:20 | Inpatient (IN) | payer MEDICARE, MEDICAID, OTHER ==
[2019-11-23 02:45] LABS: ALT (SGPT) 8 U/L (8-55); AST (SGOT) 10 U/L (5-34); Albumin 2.6 g/dL (3.4-4.8); Alkaline Phosphatase 95 U/L (40-110); Anion Gap 13 mmol/L (10-20); BUN (Urea Nitrogen) 22 mg/dL (9.8-20.1); Bilirubin, Total 0.2 mg/dL (0.2-1.2); Calc. Creatinine Clearance 0 mL/min (70-130); Calcium 8.4 mg/dL (7.8-10.44); Carbon Dioxide 26 mmol/L (23-31); Chloride 109 mmol/L (98-107); Estimated GFR-MDRD 64; Globulin 3.5 g/dL (2.4-3.5); Glucose 105 mg/dL (83-110); Potassium 3.5 mmol/L (3.5-5.1); Protein, Total 6.1 g/dL (6.0-8.3); Sodium 144 mmol/L (136-145)
[2019-11-23 02:59] LABS: Band 19 % (5-11); Eosinophils 1 % (0-10); Hemoglobin 8.6 g/dL (12.0-16.0); Lymphocytes 5 % (21-51); MDiff Complete? YES; Mean Corpuscular HGB CONC 31.7 g/dL (32.0-36.0); Mean Corpuscular Hemoglobin 24.7 pg (27.0-31.0); Mean Corpuscular Volume 78.2 fL (78.0-98.0); Mean Platelet Volume 7.3 fL (7.4-10.4); Monocytes 5 % (0-10); Neutrophil 70 % (42-75); Platelet Count 411 thou/uL (130-400); RBC Distribution Width 17.8 % (11.5-14.5); Red Blood Cell (RBC) Count 3.46 mill/uL (4.20-5.40); White Blood Cell (WBC) Count 24.4 thou/uL (4.8-10.8)
[2019-11-23 03:17] LABS: Bacteria/HPF None Seen HPF (None Seen); Bilirubin Negative (Negative); Blood, Urine Negative (Negative); Calcium Oxalate Crystals Rare HPF (None Seen); Clarity Clear (Clear); Glucose, Urine (Dipstick) Normal (Negative); Leukocyte 250 Leu/uL (Negative); Nitrite Negative (Negative); Protein, Urine (Dipstick) 30 mg/dL (Neg-Trace); RBC/HPF 0-3 HPF (0-3); Squamous Epithelial 0-3 HPF (0-3); Urobilinogen 6 mg/dL (Less than 2)
[2019-11-23] MEDS ORDERED: Cefepime 2 GM VIAL ONE (03:41)
[2019-11-23] MEDS ORDERED: Senokot S 8.6-50 MG TAB PO PRN (03:56)
[2019-11-23] MEDS ORDERED: Acetaminophen 325 MG TAB PO PRN (03:56)
[2019-11-23] MEDS ORDERED: metroNIDAZOLE 500 MG/100 ML BAG ONE (04:29)
[2019-11-23] MEDS ORDERED: Meclizine HCl 25 MG TAB PO PRN (04:46)
--- NOTE | 2019-11-23 07:04 | HP ---
CHIEF COMPLAINT: Change in mental status. HISTORY OF PRESENT ILLNESS: The patient is an 84-year-old female who is a [facility] resident who comes into the hospital for change in mental status. Per records, the patient was noted to have some aspiration that was witnessed per the nursing staff. She was given some Levaquin orally. Initially, she did well, however, started having decreased mental status. Per records, she normally talks; however she was more altered than her baseline. Per EMS records, she was noted to have a blood pressure of 88/57. At this time, she was given 1 L of normal saline per EMS, which improved her blood pressure. PAST MEDICAL HISTORY: Per records, she has a history of dementia. She has a history of chronic anemia, depression, anxiety, bipolar disorder, GERD, and schizoaffective disorder. PAST SURGICAL HISTORY: She has had a left hip repair, hysterectomy. SOCIAL HISTORY: Family reports previous history of tobacco abuse. None recently. She lives in a [facility]. No alcohol or drug use per documentation. She is a DNAR. She has an out of hospital DNAR. ALLERGIES: NO KNOWN DRUG ALLERGIES. MEDICATIONS: Per her [facility] records are as of the followin. Aspirin 81 mg daily. 2. She is on Celexa 10 mg daily. 3. She is on clonazepam 0.25 twice daily. 4. Colace 100 mg daily. 5. Folic acid 1 p.o. daily. 6. Lactulose 30 mL daily. 7. She is on iron 5 mL twice daily. 8. She is on Levaquin 750 mg for 7 days, which was started yesterday. 9. Omeprazole 20 mg daily. 10. Oxcarbazepine 75 mg twice daily. 11. Remeron 15 mg at bedtime. 12. Risperdal 0.5 in the morning and 0.5 in the evening. 13. Tylenol. REVIEW OF SYSTEMS: Unable to obtain. Patient is a little altered. PHYSICAL EXAMINATION: VITAL SIGNS: Temperature of 97.3, respiratory rate of 18, 88 pulse, blood pressure 113/61, 98% on room air. GENERAL: She is awake, however, appears to be obtunded, arousable, only answers yes and no. CV: S1, S2 present. No murmurs, rubs, or gallops. LUNGS: Diminished breath sounds to bilateral lower lung bases. HEENT: The patient appears to be cachectic. Mucous membranes are mildly dry. ABDOMEN: Soft, nontender upon palpation. Bowel sounds are present x2. EXTREMITIES: Her lower extremities are contracted. Pedal pulses are present. No edema noted. NEUROVASCULAR: She opens her eyes minimally on significant stimulation. She however does answer yes and no. The patient appears to have lower extremity contraction. LABORATORY RESULTS: Hemoglobin of 8.6, hematocrit of 27.0, WBC of 24.4. Her bands are 19, platelets of 411. Chemistry: Sodium of 144, potassium 3.5, BUN of 22, creatinine 0.84. Urine she has leukocyte of 250, wbcs of 7 to 10. IMAGING: She had a chest x-ray, which appears to have some right lower lung infiltrates and she has hyperinflated lungs. This is per my interpretation. ASSESSMENT AND PLAN: The patient is an 84-year-old female, who presents to the hospital with change in mental status. 1. Sepsis. We will start the patient on some Zosyn for possible aspiration pneumonia. We will get Speech to evaluate the patient. The patient has an oiq-ia-fmimtwhy DNAR. We will keep her n.p.o. for now. Start her on some gentle hydration. 2. Leukocytosis with bandemia. This is most likely secondary to her pneumonia. She is also being ruled out for COVID, unlikely to be COVID however given the fact that she is in a [facility], want to make sure. We will continue the broad-spectrum antibiotics. 3. Possible urinary tract infection. We will check a urine culture. Her current antibiotics should cover the urine. 4. Anemia appears to be her baseline. We will continue to monitor. No current intervention. We will continue to trend hemoglobin and hematocrit. 5. Deep venous thrombosis prophylaxis. We will put patient on subcutaneous Lovenox. Job ID: [id number]
[2019-11-23] MEDS: risperiDONE 0.25 MG TAB PO SCH (08:10)
[2019-11-23] MEDS: clonazePAM 0.5 MG TAB PO SCH (08:10)
[2019-11-23] MEDS: Citalopram 10 MG TAB PO SCH (08:10)
[2019-11-23] MEDS: OXcarbazepine 150 MG TAB PO SCH (08:10)
[2019-11-23] MEDS: Aspirin 81 mg Enteric Coated Tablet PO SCH (08:10)
[2019-11-23] MEDS: Folic Acid 1 MG TAB PO SCH (08:10)
[2019-11-23] MEDS: Saccharomyces boulardii 250 MG CAP PO SCH (08:10)
[2019-11-23] MEDS: Piperacillin/Tazobactam 4.5 GM in Sodium Chloride 0.9% 100 ML IVPB SCH ×3 (08:11→22:00)
[2019-11-23] MEDS: Enoxaparin Sodium 40 MG/0.4 ML SYRINGE SC SCH (08:11)
[2019-11-23] MEDS ORDERED: Ondansetron ODT 4 MG TAB PO PRN (08:20)
[2019-11-23] MEDS ORDERED: Ondansetron PF 4 MG/2 ML Vial IVP PRN (08:20)
[2019-11-23] MEDS ORDERED: Sodium Chloride 0.9% 1,000 ML IV SCH (08:30)
--- NOTE | 2019-11-23 10:58 | RAD ---
CHEST 1 VIEW: INDICATION: History of dyspnea and aspiration pneumonia. COMPARISON: Prior exam dated 11/06/2018. FINDINGS: Chronic lung changes and hyperinflation is similar-appearing. Cardiomegaly is unchanged. No new air space opacity, pleural effusion, or pneumothorax is evident. No acute osseous abnormality is noted. There is diffuse osteopenia. IMPRESSION: Stable chronic lung changes. Stable mild cardiomegaly. No overt evidence to suggest the presence of aspiration pneumonia. POS: BH
[2019-11-23] MEDS ORDERED: Prevnar 13-Val Conj/PF 0.5 ML SYRINGE IM ONE (11:15)
[2019-11-23 13:46] LABS: SARS-CoV-2 MS2 Positive; SARS-CoV-2 N Gene Negative; SARS-CoV-2 S Gene Negative; SARS-CoV-2 orf1ab Negative
[2019-11-23 15:00] LABS: Iron 10 ug/dL (50-170); Iron Binding Capacity, Total 206 mcg/dL (265-497)
[2019-11-23 15:26] LABS: Ferritin 78.92 ng/mL (10-291)
[2019-11-23] MEDS: Dextrose 5 % And 0.9 % NaCl 1,000 ML IV SCH (16:52)
--- NOTE | 2019-11-23 23:44 | PDOC.HOSPP ---
- Subjective Encounter Date: 11/23/19 Encounter Time: 12:00 Subjective: The patient was non-verbal most of the day. Per nursing staff, the most responsive she was is talking noncoherent conversation Per son, patient does not really talk much at home and per intermediate she was eating 50% of her meals up until yesterday. She was on a pureed diet - Objective Vital Signs & Weight: Vital Signs (12 hours) Temp Pulse Pulse Pulse Resp BP BP 11/23/19 19:51 98.2 F 91 16 11/23/19 17:43 98.3 F 99 18 11/23/19 15:39 99.8 F H 88 17 11/23/19 14:10 82 97 130/65 121/69 11/23/19 11:58 98.3 F 81 17 BP BP Pulse Ox 11/23/19 19:51 145/75 H 95 11/23/19 17:43 136/72 96 11/23/19 15:39 133/73 95 11/23/19 14:10 11/23/19 11:58 116/58 L 95 Weight Weight 81 lb 12.8 oz I&O: 11/22/19 11/23/19 11/24/19 06:59 06:59 06:59 Intake Total 1100 Balance 1100 Result Diagrams: 11/23/19 02:13 11/23/19 02:13 Hospitalist ROS - Review of Systems Constitutional: denies: fever, chills - Medication Medications: Active Medications Generic Name Dose Route Start Last Admin Trade Name Freq PRN Reason Stop Dose Admin Aspirin 81 mg 11/23/19 09:00 11/23/19 08:10 Ecotrin PO Not Given DAILY [facility] Citalopram Hydrobromide 10 mg 11/23/19 09:00 11/23/19 08:10 Celexa PO Not Given DAILY KANIKA Clonazepam 0.25 mg 11/23/19 09:00 11/23/19 08:10 Klonopin PO Not Given BID KANIKA Enoxaparin Sodium 40 mg 11/23/19 09:00 11/23/19 08:11 Lovenox SC 40 mg 0900 KANIKA Administration Folic Acid 1 mg 11/23/19 09:00 11/23/19 08:10 Folvite PO Not Given DAILY [facility] Piperacillin Sod/Tazobactam 100 mls @ 200 mls/hr 11/23/19 06:00 11/23/19 22: 00 Sod 4.5 gm/ Sodium Chloride IVPB 100 mls Q8HR KANIKA Administration Dextrose/Sodium Chloride 1,000 mls @ 100 mls/hr 11/23/19 16:15 11/23/19 16:52 D5 0.9% Ns IV 1,000 mls .Q10H KANIKA Administration Lactulose 30 gm 11/23/19 09:00 11/23/19 08:10 Lactulose PO Not Given DAILY [facility]A Oxcarbazepine 75 mg 11/23/19 09:00 11/23/19 08:10 Trileptal PO Not Given BID KANIKA Risperidone 0.5 mg 11/23/19 09:00 11/23/19 08:10 Risperidone PO Not Given BID KANIKA Saccharomyces Boulardii 250 mg 11/23/19 09:00 11/23/19 08:10 Florastor PO Not Given DAILY KANIKA Sodium Chloride 10 ml 11/23/19 09:00 11/23/19 08:12 Flush - Normal Saline IVF 10 ml Q12HR KANIKA Administration - Exam General Appearance: NAD, awake alert General - other findings: cachexic Eye: PERRL, anicteric sclera ENT: normocephalic atraumatic, no oropharyngeal lesions, dry oral mucosa Neck: supple, symmetric, no JVD Heart: RRR, no murmur, no gallops, no rubs Respiratory: CTAB, no wheezes, no rales, no ronchi, normal chest expansion Gastrointestinal: soft, non-tender, non-distended, normal bowel sounds, no palpable masses, no hepatomegaly Extremities: no cyanosis, no clubbing, no edema Skin: normal turgor, no lesions, no rashes Neurological: cranial nerve grossly intact, normal sensation to touch, no weakness, no focal deficits Musculoskeletal: normal tone, normal strength, no muscle wasting Psychiatric: normal affect, normal behavior, A&O x 3, oriented to person, oriented to place, oriented to time Hosp A/P - Plan This is an 84 year old female who presented with altered mental status, refusing oral foods, admitted for aspiration pneumonia Aspiration pneumonia - continue IV zosyn - COVID testing negative Leukocytosis- secondary to pneumonia - wBC of 24, continue IV zosyn, repeat tomorrow - UA and COVID negative Malnutrition - speech saw her, she aspirated with all textures - continue NPO for now - reassess dysphagia tomorrow - per family, advance directives of patient state she is not interested in feeding tube Anemia -Hb 8.6, iron panel normal - B12/folate normal Alzheimers - continue home meds Dispo: re-evaluate mental status/dysphagia in am, likely can go back to NH once diet established Code status: DNR
[2019-11-24] MEDS: OXcarbazepine 150 MG TAB PO SCH ×3 (00:50→19:50)
[2019-11-24] MEDS: Mirtazapine 15 MG TAB PO SCH ×2 (00:50→19:49)
[2019-11-24] MEDS: clonazePAM 0.5 MG TAB PO SCH ×3 (00:50→19:48)
[2019-11-24] MEDS: risperiDONE 0.25 MG TAB PO SCH ×3 (00:51→19:49)
[2019-11-24] MEDS: Piperacillin/Tazobactam 4.5 GM in Sodium Chloride 0.9% 100 ML IVPB SCH ×3 (05:20→22:34)
[2019-11-24] MEDS: Dextrose 5 % And 0.9 % NaCl 1,000 ML IV SCH ×2 (05:22→14:11)
[2019-11-24 05:48] LABS: #Eosinphils 0.2 thou/uL (0.0-0.7); #Monocytes 0.8 thou/uL (0.11-0.59); #Neutrophils 10.7 thou/uL (1.40-6.50); %Basophils 0.2 % (0.0-1.0); %Eosinophils 1.9 % (0.0-10.0); %Monocytes 6.1 % (0.0-10.0); %Neutrophils 83.8 % (42.0-75.0); Hemoglobin 7.9 g/dL (12.0-16.0); Mean Corpuscular HGB CONC 30.7 g/dL (32.0-36.0); Mean Corpuscular Volume 78.3 fL (78.0-98.0); Mean Platelet Volume 7.3 fL (7.4-10.4); Platelet Count 387 thou/uL (130-400); RBC Distribution Width 17.9 % (11.5-14.5); Red Blood Cell (RBC) Count 3.26 mill/uL (4.20-5.40); White Blood Cell (WBC) Count 12.8 thou/uL (4.8-10.8)
[2019-11-24 06:08] LABS: Anion Gap 8 mmol/L (10-20); BUN (Urea Nitrogen) 13 mg/dL (9.8-20.1); Calc. Creatinine Clearance 39 mL/min (70-130); Calcium 7.9 mg/dL (7.8-10.44); Carbon Dioxide 24 mmol/L (23-31); Chloride 115 mmol/L (98-107); Estimated GFR-MDRD Greater than 90; Glucose 113 mg/dL (83-110); Potassium 3.1 mmol/L (3.5-5.1); Sodium 144 mmol/L (136-145)
[2019-11-24] MEDS: Saccharomyces boulardii 250 MG CAP PO SCH (08:24)
[2019-11-24] MEDS: Enoxaparin Sodium 40 MG/0.4 ML SYRINGE SC SCH (08:24)
[2019-11-24] MEDS: Aspirin 81 mg Enteric Coated Tablet PO SCH (08:24)
[2019-11-24] MEDS: Citalopram 10 MG TAB PO SCH (08:24)
[2019-11-24] MEDS: Folic Acid 1 MG TAB PO SCH (08:24)
[2019-11-24] MEDS ORDERED: Potassium Chloride 20 MEQ TAB PO SCH ×2 (09:00→15:30)
[2019-11-24] MEDS ORDERED: Iron Sucrose Complex 100 MG in Sodium Chloride 0.9% 100 ML IVPB SCH (10:00)
[2019-11-24] MEDS ORDERED: Ferrous Gluconate 324 MG TAB PO SCH ×2 (10:01→10:15)
[2019-11-24] MEDS ORDERED: Iron, Sodium Ferric Gluconate 125 MG in Sodium Chloride 0.9% 100 ML IVPB SCH (10:15)
--- NOTE | 2019-11-24 20:03 | PDOC.HOSPP ---
- Subjective Encounter Date: 11/24/19 Encounter Time: 11:45 Subjective: pt up in bed confused. - Objective Vital Signs & Weight: Vital Signs (12 hours) Temp Pulse Resp BP Pulse Ox 11/24/19 19:54 98.3 F 87 16 138/75 100 11/24/19 16:00 98.0 F 78 16 144/74 H 100 11/24/19 12:00 98.2 F 72 18 120/58 L 97 11/24/19 08:00 90 L Weight Admit Weight 81 lb Weight 81 lb 12.8 oz I&O: 11/23/19 11/24/19 11/25/19 06:59 06:59 06:59 Intake Total 2780 240 Balance 2780 240 Result Diagrams: 11/24/19 05:09 11/24/19 05:09 Hospitalist ROS - Review of Systems Other: unable to obtain - Medication Medications: Active Medications Generic Name Dose Route Start Last Admin Trade Name Freq PRN Reason Stop Dose Admin Aspirin 81 mg 11/23/19 09:00 11/24/19 08:24 Ecotrin PO 81 mg DAILY [facility]ANIKA Administration Citalopram Hydrobromide 10 mg 11/23/19 09:00 11/24/19 08:24 Celexa PO 10 mg DAILY [facility]A Administration Clonazepam 0.25 mg 11/23/19 09:00 11/24/19 19:48 Klonopin PO 0.25 mg BID KANIKA Administration Enoxaparin Sodium 40 mg 11/23/19 09:00 11/24/19 08:24 Lovenox SC 40 mg 0900 KANIKA Administration Folic Acid 1 mg 11/23/19 09:00 11/24/19 08:24 Folvite PO 1 mg DAILY [facility]A Administration Piperacillin Sod/Tazobactam 100 mls @ 200 mls/hr 11/23/19 06:00 11/24/19 14: 08 Sod 4.5 gm/ Sodium Chloride IVPB 100 mls Q8HR KANIKA Administration Dextrose/Sodium Chloride 1,000 mls @ 100 mls/hr 11/23/19 16:15 11/24/19 14:11 D5 0.9% Ns IV 1,000 mls .Q10H KANIKA Administration Lactulose 30 gm 11/23/19 09:00 11/24/19 08:24 Lactulose PO 30 gm DAILY [facility]A Administration Mirtazapine 15 mg 11/23/19 21:00 11/24/19 19:49 Remeron PO 15 mg HS KANIKA Administration Oxcarbazepine 75 mg 11/23/19 09:00 11/24/19 19:50 Trileptal PO 75 mg BID KANIKA Administration Risperidone 0.5 mg 11/23/19 09:00 11/24/19 19:49 Risperidone PO 0.5 mg BID KANIKA Administration Saccharomyces Boulardii 250 mg 11/23/19 09:00 11/24/19 08:24 Florastor PO 250 mg DAILY [facility]IKA Administration Sodium Chloride 10 ml 11/23/19 09:00 11/24/19 19:55 Flush - Normal Saline IVF Not Given Q12HR KANIKA - Exam Neck: negative: supple, symmetric, no JVD, no thyromegaly, no lymphadenopathy, no carotid bruit, JVD Heart: negative: RRR, no murmur, no gallops, no rubs, normal peripheral pulses, irregular, diminshed peripheral pulses, murmur present, II/IV, III/IV Respiratory: negative: CTAB, no wheezes, no rales, no ronchi, normal chest expansion, no tachypnea, normal percussion, rales, rhonchi, tachypneic, wheezes Gastrointestinal: negative: soft, non-tender, non-distended, normal bowel sounds , no palpable masses, no hepatomegaly, no splenomegaly, no bruit, no guarding, no rigidity, tender to palpation, distended, diminished bowl sounds, voluntary guarding Hosp A/P (1) Acute metabolic encephalopathy Code(s): G93.41 - METABOLIC ENCEPHALOPATHY Status: Acute (2) Aspiration pneumonia Code(s): J69.0 - PNEUMONITIS DUE TO INHALATION OF FOOD AND VOMIT Status: Acute (3) Dementia Code(s): F03.90 - UNSPECIFIED DEMENTIA WITHOUT BEHAVIORAL DISTURBANCE Status: Acute (4) Hypokalemia Code(s): E87.6 - HYPOKALEMIA Status: Acute - Plan will continue abx for now. pt was coughing with pureed diet. upon my evaluation pt was feed puree diet and did well. will monitor her. Her fluids have to been thickened apple sauce consistency. will replace K. will check hh in am.
[2019-11-25] MEDS: Dextrose 5 % And 0.9 % NaCl 1,000 ML IV SCH ×3 (01:05→22:13)
[2019-11-25] MEDS: Piperacillin/Tazobactam 4.5 GM in Sodium Chloride 0.9% 100 ML IVPB SCH ×2 (05:41→14:02)
[2019-11-25] MEDS: risperiDONE 0.25 MG TAB PO SCH ×2 (08:07→19:21)
[2019-11-25] MEDS: Aspirin 81 mg Enteric Coated Tablet PO SCH (08:07)
[2019-11-25] MEDS: clonazePAM 0.5 MG TAB PO SCH ×2 (08:07→19:20)
[2019-11-25] MEDS: Enoxaparin Sodium 40 MG/0.4 ML SYRINGE SC SCH (08:07)
[2019-11-25] MEDS: Folic Acid 1 MG TAB PO SCH (08:08)
[2019-11-25] MEDS: OXcarbazepine 150 MG TAB PO SCH ×2 (08:08→19:21)
[2019-11-25] MEDS: Saccharomyces boulardii 250 MG CAP PO SCH (08:08)
[2019-11-25] MEDS: Ferrous Gluconate 324 MG TAB PO SCH (08:09)
[2019-11-25] MEDS: Citalopram 10 MG TAB PO SCH (08:09)
[2019-11-25] MEDS: Cyanocobalamin (Vitamin B-12) 1,000 MCG TAB PO SCH (08:09)
[2019-11-25 08:18] LABS: Hemoglobin 8.9 g/dL (12.0-16.0); Mean Corpuscular Hemoglobin 23.5 pg (27.0-31.0); Mean Corpuscular Volume 81.1 fL (78.0-98.0); Mean Platelet Volume 7.8 fL (7.4-10.4); Platelet Count 291 thou/uL (130-400); RBC Distribution Width 18.1 % (11.5-14.5); Red Blood Cell (RBC) Count 3.78 mill/uL (4.20-5.40)
[2019-11-25 08:26] LABS: Anion Gap 8 mmol/L (10-20); BUN (Urea Nitrogen) 5 mg/dL (9.8-20.1); Calc. Creatinine Clearance 40 mL/min (70-130); Calcium 7.5 mg/dL (7.8-10.44); Carbon Dioxide 22 mmol/L (23-31); Chloride 117 mmol/L (98-107); Estimated GFR-MDRD Greater than 90; Glucose 314 mg/dL (83-110); Sodium 144 mmol/L (136-145)
[2019-11-25 08:31] LABS: Potassium 2.8 mmol/L (3.5-5.1)
[2019-11-25] MEDS ORDERED: Potassium Chloride 20 MEQ TAB PO SCH ×2 (09:00→14:00)
--- NOTE | 2019-11-25 15:18 | PDOC.HOSPP ---
- Subjective Encounter Date: 11/25/19 Encounter Time: 09:00 Subjective: The patient has no complaints. She states she is thirsty. She is sitting up in bed, noted to have difficulty swallowing her saliva - Objective Vital Signs & Weight: Vital Signs (12 hours) Temp Pulse Resp BP Pulse Ox 11/25/19 08:00 100 11/25/19 07:28 96.8 F L 68 16 145/67 H 100 Weight Admit Weight 81 lb Weight 81 lb 12.8 oz I&O: 11/24/19 11/25/19 11/26/19 06:59 06:59 06:59 Intake Total 2780 1490 240 Balance 2780 1490 240 Result Diagrams: 11/25/19 07:56 11/25/19 14:22 Hospitalist ROS - Review of Systems Constitutional: denies: fever, chills Respiratory: denies: cough, dry - Medication Medications: Active Medications Generic Name Dose Route Start Last Admin Trade Name Freq PRN Reason Stop Dose Admin Aspirin 81 mg 11/23/19 09:00 11/25/19 08:07 Ecotrin PO 81 mg DAILY [facility]A Administration Citalopram Hydrobromide 10 mg 11/23/19 09:00 11/25/19 08:09 Celexa PO 10 mg DAILY [facility]A Administration Clonazepam 0.25 mg 11/23/19 09:00 11/25/19 08:07 Klonopin PO 0.25 mg BID KANIKA Administration Cyanocobalamin 1,000 mcg 11/25/19 09:00 11/25/19 08:09 Vitamin B-12 PO 1,000 mcg DAILY [facility]IKA Administration Enoxaparin Sodium 40 mg 11/23/19 09:00 11/25/19 08:07 Lovenox SC 40 mg 09 KANIKA Administration Ferrous Gluconate 324 mg 11/25/19 08:00 11/25/19 08:09 Fergon PO 324 mg QAM-WM KANIKA Administration Folic Acid 1 mg 11/23/19 09:00 11/25/19 08:08 Folvite PO 1 mg DAILY [facility] Administration Piperacillin Sod/Tazobactam 100 mls @ 200 mls/hr 11/23/19 06:00 11/25/19 14: 02 Sod 4.5 gm/ Sodium Chloride IVPB 100 mls Q8HR [facility]IKA Administration Dextrose/Sodium Chloride 1,000 mls @ 100 mls/hr 06/22/20 16:15 11/25/19 11:46 D5 0.9% Ns IV 1,000 mls .Q10H [facility]IKA Administration Lactulose 30 gm 11/23/19 09:00 11/25/19 08:09 Lactulose PO 30 gm DAILY [facility] Administration Mirtazapine 15 mg 11/23/19 21:00 11/24/19 19:49 Remeron PO 15 mg HS KANIKA Administration Oxcarbazepine 75 mg 11/23/19 09:00 11/25/19 08:08 Trileptal PO 75 mg BID KANIKA Administration Potassium Chloride 20 meq 11/25/19 14:00 11/25/19 14:27 K-Dur PO 11/25/19 16:00 20 meq NOW KANIKA Administration Risperidone 0.5 mg 11/23/19 09:00 11/25/19 08:07 Risperidone PO 0.5 mg BID KANIKA Administration Saccharomyces Boulardii 250 mg 11/23/19 09:00 11/25/19 08:08 Florastor PO 250 mg DAILY [facility]A Administration Sodium Chloride 10 ml 11/23/19 09:00 11/25/19 08:10 Flush - Normal Saline IVF Not Given Q12HR KANIKA - Exam General Appearance: NAD, awake alert General - other findings: mouth is less dry Eye: PERRL, anicteric sclera ENT: normocephalic atraumatic, no oropharyngeal lesions Neck: no JVD Heart: RRR, no murmur, no gallops, no rubs Respiratory: CTAB, no wheezes, no rales, no ronchi Gastrointestinal: soft, non-tender, non-distended, normal bowel sounds Extremities: no cyanosis, no clubbing, no edema Skin: normal turgor, no lesions, no rashes Neurological: cranial nerve grossly intact, normal sensation to touch, no focal deficits, no new deficit Musculoskeletal: normal tone, normal strength, no muscle wasting Hosp A/P - Plan This is an 84 year old female who presented with altered mental status, refusing oral foods, admitted for aspiration pneumonia Aspiration pneumonia - continue IV zosyn - COVID testing negative Hypokalemia - potassium 2.8 this morning, s/p 40 meq. Repeat potassium still 2, will replace with IV potassium - check magnesium level Leukocytosis- secondary to pneumonia - wBC of 24, continue IV zosyn, likely will have difficulty swallowing oral. WBC now 6. Switch to oral augmentin - UA and COVID negative Malnutrition - speech saw her, she aspirated with all textures. Family has agreed to a diet with risk of aspiration - patient does not want feeding tube Anemia -Hb 8.6, iron panel normal - B12/folate normal Advanced Alzheimers - continue home meds - palliative care consulted with regards to disease trajectory Dispo: re-evaluate hypokalemia Code status: DNR
[2019-11-25 16:13] LABS: Magnesium 0.6 mg/dL (1.6-2.6)
[2019-11-25] MEDS: Potassium Chloride 10 MEQ in Premix Bag 1 BAG IVPB SCH ×4 (16:25→19:20)
[2019-11-25] MEDS ORDERED: Magnesium Sulfate 4 GM in Sodium Chloride 0.9% 250 ML 250 ML IVPB SCH ×2 (16:30→21:00)
[2019-11-25] MEDS: Amoxicillin/Potassium Clav 875 MG TAB PO SCH (19:20)
[2019-11-25] MEDS: Mirtazapine 15 MG TAB PO SCH (19:21)
[2019-11-26] MEDS: Dextrose 5 % And 0.9 % NaCl 1,000 ML IV SCH (04:23)
[2019-11-26 06:30] LABS: Hemoglobin 8.1 g/dL (12.0-16.0); Mean Corpuscular HGB CONC 30.9 g/dL (32.0-36.0); Mean Corpuscular Hemoglobin 23.7 pg (27.0-31.0); Mean Corpuscular Volume 76.9 fL (78.0-98.0); Mean Platelet Volume 7.8 fL (7.4-10.4); Platelet Count 343 thou/uL (130-400); White Blood Cell (WBC) Count 6.3 thou/uL (4.8-10.8)
[2019-11-26 07:02] LABS: Anion Gap 7 mmol/L (10-20); BUN (Urea Nitrogen) 4 mg/dL (9.8-20.1); Calc. Creatinine Clearance 40 mL/min (70-130); Calcium 7.2 mg/dL (7.8-10.44); Carbon Dioxide 20 mmol/L (23-31); Chloride 113 mmol/L (98-107); Estimated GFR-MDRD Greater than 90; Glucose 482 mg/dL (83-110); Potassium 3.2 mmol/L (3.5-5.1); Sodium 137 mmol/L (136-145)
[2019-11-26] MEDS: Enoxaparin Sodium 40 MG/0.4 ML SYRINGE SC SCH (09:33)
[2019-11-26] MEDS: Saccharomyces boulardii 250 MG CAP PO SCH (09:33)
[2019-11-26] MEDS: OXcarbazepine 150 MG TAB PO SCH ×2 (09:34→20:49)
[2019-11-26] MEDS: Aspirin 81 mg Enteric Coated Tablet PO SCH (09:34)
[2019-11-26] MEDS: Cyanocobalamin (Vitamin B-12) 1,000 MCG TAB PO SCH (09:34)
[2019-11-26] MEDS: risperiDONE 0.25 MG TAB PO SCH ×2 (09:34→20:49)
[2019-11-26] MEDS: Ferrous Gluconate 324 MG TAB PO SCH (09:34)
[2019-11-26] MEDS: Amoxicillin/Potassium Clav 875 MG TAB PO SCH ×2 (09:34→20:48)
[2019-11-26] MEDS: Folic Acid 1 MG TAB PO SCH (09:34)
[2019-11-26] MEDS: clonazePAM 0.5 MG TAB PO SCH ×2 (09:34→20:48)
[2019-11-26] MEDS: Citalopram 10 MG TAB PO SCH (09:34)
[2019-11-26] MEDS ORDERED: Potassium Chloride 20 MEQ TAB PO SCH (09:45)
[2019-11-26] MEDS ORDERED: HumaLOG 300 UNITS/3 ML VIAL SC SCH (12:15)
[2019-11-26 16:25] LABS: Potassium 4.2 mmol/L (3.5-5.1)
--- NOTE | 2019-11-26 18:05 | PDOC.HOSPP ---
- Subjective Encounter Date: 11/26/19 Encounter Time: 10:00 Subjective: The patient is sitting in bed, sleeping. WHen I arouse her she starts moaning. She has some hallucinations - Objective Vital Signs & Weight: Vital Signs (12 hours) Temp Pulse Resp BP BP Pulse Ox 11/26/19 17:48 98.5 F 11/26/19 15:31 96.6 F L 11/26/19 13:15 64 16 130/73 95 11/26/19 12:30 95.1 F L 11/26/19 09:34 100 11/26/19 07:29 68 15 121/77 100 Weight Admit Weight 81 lb Weight 81 lb 12.8 oz I&O: 11/25/19 11/26/19 11/27/19 06:59 06:59 06:59 Intake Total 1490 1510 Balance 1490 1510 Result Diagrams: 11/26/19 06:16 11/26/19 15:40 Additional Labs: Accuchecks 11/26/19 13:15 POC Glucose 126 H Hospitalist ROS - Medication Medications: Active Medications Generic Name Dose Route Start Last Admin Trade Name Nichoq PRN Reason Stop Dose Admin Amoxicillin/Clavulanate Potassium 875 mg 11/25/19 21:00 11/26/19 09:34 Augmentin PO 875 mg Q12HR KANIKA Administration Aspirin 81 mg 11/23/19 09:00 11/26/19 09:34 Ecotrin PO 81 mg DAILY KANIKA Administration Citalopram Hydrobromide 10 mg 11/23/19 09:00 11/26/19 09:34 Celexa PO 10 mg DAILY KANIKA Administration Clonazepam 0.25 mg 11/23/19 09:00 11/26/19 09:34 Klonopin PO 0.25 mg BID KANIKA Administration Cyanocobalamin 1,000 mcg 11/25/19 09:00 11/26/19 09:34 Vitamin B-12 PO 1,000 mcg DAILY KANIKA Administration Enoxaparin Sodium 40 mg 11/23/19 09:00 11/26/19 09:33 Lovenox SC 40 mg 0900 KANIKA Administration Ferrous Gluconate 324 mg 11/25/19 08:00 11/26/19 09:34 Fergon PO 324 mg QAM-WM KANIKA Administration Folic Acid 1 mg 11/23/19 09:00 11/26/19 09:34 Folvite PO 1 mg DAILY KANIKA Administration Lactulose 30 gm 11/23/19 09:00 11/26/19 09:34 Lactulose PO 30 gm DAILY KANIKA Administration Mirtazapine 15 mg 11/23/19 21:00 11/25/19 19:21 Remeron PO 15 mg HS KANIKA Administration Oxcarbazepine 75 mg 11/23/19 09:00 11/26/19 09:34 Trileptal PO 75 mg BID KANIKA Administration Risperidone 0.5 mg 11/23/19 09:00 11/26/19 09:34 Risperidone PO 0.5 mg BID KANIKA Administration Saccharomyces Boulardii 250 mg 11/23/19 09:00 11/26/19 09:33 Florastor PO 250 mg DAILY KANIKA Administration Sodium Chloride 10 ml 11/23/19 09:00 11/26/19 09:35 Flush - Normal Saline IVF Not Given Q12HR KANIKA - Exam General Appearance: NAD General - other findings: drowsy, arousable to name. Sits in bed in contracted position Eye: PERRL, anicteric sclera ENT: normocephalic atraumatic, no oropharyngeal lesions Neck: supple, no JVD Heart: RRR, no murmur, no gallops, no rubs Respiratory: CTAB, no wheezes, no rales, no ronchi Gastrointestinal: soft, non-tender, non-distended, normal bowel sounds, no palpable masses Extremities: no cyanosis, no clubbing, no edema Skin: normal turgor, no lesions, no rashes Hosp A/P - Plan This is an 84 year old female who presented with altered mental status, refusing oral foods, admitted for aspiration pneumonia Aspiration pneumonia - was on IV zosyn, switched to oral augmentin. Currently day 4 of antibiotics - COVID testing negative Alzheimers dementia - patient requires assistance with ADL at baseline. Appears to be declining with hallucinations and has difficulty eating - palliative care consulted, placed hospice consult. Awaiting hospice evaluation prior to dc to group home Hypokalemia - resolved Hypomagnesemia - s/p 4 grams of magnesium with resolution Malnutrition - continue diet with risk of aspiration Anemia -Hb 8.6, iron panel normal - B12/folate normal Advanced Alzheimers - continue home meds - palliative care consulted with regards to disease trajectory Dispo: discharge pending hospice evaluation Code status: DNR
[2019-11-26] MEDS: Mirtazapine 15 MG TAB PO SCH (20:48)
--- NOTE | 2019-11-26 21:05 | RAD ---
PORTABLE CHEST: 11/26/19 HISTORY: Hypoxia. Evaluation for aspiration. COMPARISON: A 11/23/19 exam. Heart size within normal limits. There are atherosclerotic changes of the aorta. There is some infilt rative appearing changes now developing in the right lung base. Chronic lung changes and diffuse bony demineralization are noted. IMPRESSION: Right lower lobe infiltrative change. POS: [facility]
[2019-11-27 05:54] LABS: Hemoglobin 8.7 g/dL (12.0-16.0); Mean Corpuscular Hemoglobin 23.7 pg (27.0-31.0); Mean Corpuscular Volume 76.4 fL (78.0-98.0); Mean Platelet Volume 7.5 fL (7.4-10.4); Platelet Count 389 thou/uL (130-400); Red Blood Cell (RBC) Count 3.65 mill/uL (4.20-5.40); White Blood Cell (WBC) Count 5.8 thou/uL (4.8-10.8)
[2019-11-27 06:19] LABS: Anion Gap 9 mmol/L (10-20); BUN (Urea Nitrogen) 6 mg/dL (9.8-20.1); Calc. Creatinine Clearance 41 mL/min (70-130); Calcium 7.9 mg/dL (7.8-10.44); Carbon Dioxide 21 mmol/L (23-31); Chloride 109 mmol/L (98-107); Estimated GFR-MDRD Greater than 90; Glucose 73 mg/dL (83-110); Potassium 4.3 mmol/L (3.5-5.1); Sodium 135 mmol/L (136-145)
[2019-11-27] MEDS: Amoxicillin/Potassium Clav 875 MG TAB PO SCH (09:38)
[2019-11-27] MEDS: Ferrous Gluconate 324 MG TAB PO SCH (09:38)
[2019-11-27] MEDS: clonazePAM 0.5 MG TAB PO SCH (09:38)
[2019-11-27] MEDS: Aspirin 81 mg Enteric Coated Tablet PO SCH (09:38)
[2019-11-27] MEDS: Saccharomyces boulardii 250 MG CAP PO SCH (09:38)
[2019-11-27] MEDS: Citalopram 10 MG TAB PO SCH (09:38)
[2019-11-27] MEDS: Folic Acid 1 MG TAB PO SCH (09:38)
[2019-11-27] MEDS: Cyanocobalamin (Vitamin B-12) 1,000 MCG TAB PO SCH (09:39)
[2019-11-27] MEDS: risperiDONE 0.25 MG TAB PO SCH (09:39)
[2019-11-27] MEDS: OXcarbazepine 150 MG TAB PO SCH (09:39)
[2019-11-27] MEDS: Enoxaparin Sodium 40 MG/0.4 ML SYRINGE SC SCH (09:40)
--- NOTE | 2019-11-27 12:37 | DIS ---
DATE OF ADMISSION: 11/23/2019 DATE OF DISCHARGE: 11/27/2019 DISCHARGE DIAGNOSES: 1. Acute encephalopathy secondary to aspiration pneumonia. 2. Hypomagnesemia. 3. Hypokalemia. 4. Severe dementia, likely worsening. 5. Malnutrition/dysphagia. BRIEF HISTORY OF PRESENT ILLNESS: This is an 84 year old female with a past medical history of Alzheimer's disease, who was noticed to have an aspiration event in her intermediate. The patient was more altered at her baseline and her blood pressure was 88/57. She was given 1 L of normal saline and transferred to the ER. In the ER, she was found to have a white count of 24.4. Her chest x-ray showed stable mild cardiomegaly, but no aspiration pneumonia. She was started on IV Zosyn and admitted for further workup. HOSPITAL COURSE: Acute hypoxic respiratory failure secondary to aspiration pneumonia: The patient was started on IV antibiotics. She was hydrated with IV fluids. When her mental status improved, she was seen by Speech Therapy and started on a pureed diet. Her antibiotics were switched to oral Augmentin. Her white count resolved to 5.8 at the time of discharge. She was tested for COVID, which was negative. On the , she had a low O2 saturation of 93% on room air. Repeat chest x-ray showed a right lower lobe infiltrative change suggestive of aspiration pneumonia. She will be discharged with Augmentin for 2 more days to complete a 7-day course of antibiotics. Severe malnutrition: Speech saw her and they thought that the patient is a high risk for aspiration with all textures. 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 The patient did have previous advance directive saying that she was not interested in the feeding tube. She will be discharged on a pureed with nectar thick liquid diet with aspiration precautions. Severe dementia: The patient's mental status noticed to be declining lately according to the son. The patient does have intermittent hallucinations and often does not answer questions appropriately. She was seen by palliative care for consideration of Hospice Services. Hospice evaluated the patient in the hospital and the patient will be discharged with [facility] at her intermediate. She was also made DNR/DNI by her MPOA. Hypokalemia/hypomagnesemia: The patient was noted to have a potassium of 2.0 on the . Her magnesium level was 0.6. She was given IV replacement and her potassium improved to 4.3 at the day of discharge and her magnesium of 52.0. DISCHARGE PHYSICAL EXAMINATION: VITAL SIGNS: Temperature 97.6, heart rate 82, respiratory rate 14, O2 saturation 95% on room air, and blood pressure 132/66. GENERAL: The patient is alert and awake, and oriented to person only. She is grossly underweight at 81 pounds. Answers questions that are not relevant to the question being asked. CVS: Regular rate and rhythm with no murmurs, rubs, or gallops. LUNGS: Clear to auscultation bilaterally. ABDOMEN: Positive bowel sounds, soft, nontender, and nondistended. EXTREMITIES: No significant edema. The patient is sleeping in a contracted position. NEURO: patient moves all four extremities spontaneously PERTINENT LABORATORY DATA: CBC on 11/26: White count 5.8, hemoglobin 8.7, hematocrit 27.9, and platelet count 389. BMP on 11/26: Sodium 135, potassium 4.3, chloride 109, bicarb 21, BUN 6, and creatinine 0.57. Lactic acid: 1.6. Magnesium level: 2.0. Iron panel: Iron 10, TIBC 206, percent saturation 5, and ferritin 78.92. Vitamin B12: 323. Folate: 18. TSH: 2.8. COVID PCR serology: Negative. UA on 11/22: Urine white blood cells 7 to 10, urine leukocyte esterase 250. Urine culture :growing less than 10,000 beta-hemolytic strep. Blood cultures: Negative. IMAGING STUDIES: Chest x-ray on 11/22: No acute disease. Chest x-ray on 11/25: Right lower lobe infiltrative change. DISCHARGE CONDITION: Stable. ACTIVITY: As tolerated. DIET: Pureed nectar thick liquid diet with aspiration risk. DISCHARGE CONDITION: The patient is oriented only to place. She does answer questions. Today, she states "you are the best customer I have ever seen." DISCHARGE MEDICATIONS: Augmentin 875 mg p.o. q.12 for 2 more days. All other home medications were resumed. Please refer to discharge work sheet. DISCHARGE INSTRUCTIONS: The patient should follow up with her PCP in a week. Consider repeat chest x-ray in 6 weeks for resolution of pneumonia. Take Augmentin for 2 more days. Job ID: [id number] [facility]
[2019-11-27 13:06] VITALS: BP 146/82; TEMP 97.5
--- NOTE | 2019-11-30 01:56 | PQF ---
MICAH WILL, [facility] [id number] CLINICAL DOCUMENTATION CLARIFICATION FORM: POST DISCHARGE Addendum to original discharge summary date: ____ Late entry note date: __ DATE:11/30/2019 ATTN:Dr Harrison Sonia Please exercise your independent, professional judgment in responding to the clarification form. Clinical indicators are provided on the bottom of this form for your review Please check appropriate box(s) to clarify if the following diagnosis has been ruled in or ruled out: Sepsis [ ] Ruled in diagnosis [ ] Continue to treat [ ] Resolved [ ] Ruled out diagnosis [ ] Cannot rule out diagnosis [ X ] Other diagnosis Acute encephalopathy secondary to aspiration pneumonia____ [ ] Unable to determine For continuity of documentation, please document condition throughout progress notes and discharge summary. Thank You. CLINICAL INDICATORS - SIGNS / SYMPTOMS / LABS Laboratory 11/22 WBC 24.4, Plt count 411, Neutrophils 83.8, Band 19, Lymphocytes 8.0 Blood culture 11/22 - No growth in 5 days Vital signs 11/22 BP 119/43, Pulse 88, Resp 25, Temp 97.9 ED notes p4 11/22 SIRS scoring: Yes, pt did meet at least 1 criteria H&P p2 11/22 Sepsis, possible aspiration pneumonia Hospitalist PN p4 11/23 Acute metabolic Encephalopathy Discharge summary p1 11/26 Acute hypoxic respiratory failure RISK FACTORS H&P p1 11/22 84 year-old Female H&P p1 11/22 Alzheimer dementia H&P p1 11/22 Previous smoker H&P p2 11/22 - Aspiration Pneumonia H&P p2 11/22 - Possible UTI Hospitalist PN p5 11/22 - Malnutrition TREATMENTS AUG 06 IV Cefepime 2 gm AUG 06 IV Levaquin 750 mg AUG 06 IV Zosyn 4.5 gm AUG 06 Flagyl 500 mg AUG 06 IVF NS 1L AUG 06 Augmentin 875 mg oral Blood culture 11/22 (This form is maintained as a part of the permanent medical record) 2014 [employer]. All Rights Reserved [email or web address]
== END 2019-11-27 14:10 | disposition hospice, home (50) | DRG 177 ==
LOC: ERS 01:20 → 2SW 07:07 → T4-B 17:52
PROVIDERS: ADMIT Internal Medicine; ATTEND Internal Medicine
DX: J69.0 Pneumonitis due to inhalation of food and vomit (principal); J96.01 Acute respiratory failure with hypoxia; E43 Unspecified severe protein-calorie malnutrition; G93.41 Metabolic encephalopathy; Z68.1 Body mass index [BMI] 19.9 or less, adult; Z20.828 Contact with and (suspected) exposure to other viral communicable diseases; Z66 Do not resuscitate; Z51.5 Encounter for palliative care; R13.10 Dysphagia, unspecified; D64.9 Anemia, unspecified; F41.9 Anxiety disorder, unspecified; F31.9 Bipolar disorder, unspecified; K21.9 Gastro-esophageal reflux disease without esophagitis; F25.9 Schizoaffective disorder, unspecified; J44.9 Chronic obstructive pulmonary disease, unspecified; G30.9 Alzheimer's disease, unspecified; F02.80 Dementia in other diseases classified elsewhere, unspecified severity, without behavioral disturbance, psychotic disturbance, mood disturbance, and anxiety; E83.42 Hypomagnesemia; E87.6 Hypokalemia; Z87.891 Personal history of nicotine dependence; Z79.899 Other long term (current) drug therapy; Z79.82 Long term (current) use of aspirin
CPT/HCPCS: 36415; 36416; 51701; 71045; 80048; 80053; 80183; 81003; 81015; 82607; 82728; 82746; 83540; 83550; 83605; 83735; 84443; 85025; 85027; 87040; 87086; 87635; 96361; 96365; 96366; 96375; J0692; J1650; J1956; J2543; J2916; J3475; J3480; J3490; J7050; U0003